=== PATIENT | male | born 1980 | race Caucasian/White ===

== ENCOUNTER 2017-03-11 19:32 | Emergency (ER) | payer MEDICAID, OTHER ==
[2017-03-11] MEDS ORDERED: KETOROLAC TROMETHAMINE INJ/PF 30 MG/1 ML SDV IV ONE (20:21)
--- NOTE | 2017-03-11 20:21 | ER Document Report ---
ED Medical Screen (RME) - General Chief Complaint: Fever, body aches Stated Complaint: FEVER,MUSCLE PAIN Notes: Pt is a 36 yo male c/o fever, headache and bodyache x 4 days. Tmax 102. Headache is unusual for patient, no hx/o headaches. no n/v. + diarrhea for past several days. Pt is mildly ill looking. Tachycardic at 124. TRAVEL OUTSIDE OF THE [place] IN LAST 30 DAYS: No - Related Data Allergies/Adverse Reactions: No Known Allergies Allergy (Verified 03/22/15 15:14) Past Medical History Pulmonary Medical History: Reports: Hx COPD Renal/ Medical History: Denies: Hx Peritoneal Dialysis Past Surgical History: Reports: Hx Appendectomy - Immunizations Immunizations up to date: Yes Hx Diphtheria, Pertussis, Tetanus Vaccination: Yes Physical Exam - Vital signs Vitals: Temp Pulse Resp BP Pulse Ox 98.8 F 123 H 18 135/72 H 98 03/11/17 20:01 03/11/17 20:01 03/11/17 20:01 03/11/17 20:01 03/11/17 20:01 Course - Vital Signs Vital signs: Temp Pulse Resp BP Pulse Ox 98.8 F 123 H 18 135/72 H 98 03/11/17 20:01 03/11/17 20:01 03/11/17 20:01 03/11/17 20:01 03/11/17 20:01
[2017-03-11] MEDS ORDERED: NORMAL SALINE 1000 ML 1,000 ML IV PRN ×2 (20:22→23:16)
[2017-03-11 20:51] LABS: ABSOLUTE BASOPHILS # (AUTO) 0.1 10^3/uL (0.0-0.2); ABSOLUTE EOSINOPHILS # (AUTO) 0.1 10^3/uL (0.0-0.6); ABSOLUTE LYMPHOCYTES (AUTO) 1.7 10^3/uL (0.5-4.7); ABSOLUTE NEUT (AUTO) 9.8 10^3/uL (1.7-8.2); BASOPHILS % (AUTO) 0.8 % (0-2); EOSINOPHILS % (AUTO) 0.9 % (0-6); HEMATOCRIT 44.5 % (37.9-51.0); HEMOGLOBIN 15.3 g/dL (13.5-17.0); HGB HCT DIFFERENCE 1.4; LYMPHOCYTES % (AUTO) 13.5 % (13-45); MEAN CORPUSCULAR HEMOGLOBIN 31.9 pg (27.0-33.4); MEAN CORPUSCULAR HGB CONC 34.3 g/dL (32.0-36.0); MEAN CORPUSCULAR VOLUME 93 fl (80-97); RED BLOOD COUNT 4.79 10^6/uL (4.35-5.55); RED CELL DISTRIBUTION WIDTH 12.9 % (11.5-14.0); SEGMENTED NEUTROPHILS % (AUTO) 76.8 % (42-78); WHITE BLOOD COUNT 12.8 10^3/uL (4.0-10.5)
[2017-03-11 21:04] LABS: ALANINE AMINOTRANSFERASE 80 U/L (21-72); ALBUMIN 4.6 g/dL (3.5-5.0); ALKALINE PHOSPHATASE 79 U/L (38-126); ANION GAP 12 (5-19); ASPARTATE AMINO TRANSFERASE 38 U/L (17-59); BILIRUBIN,DIRECT 0.4 mg/dL (0.0-0.4); BILIRUBIN,TOTAL 0.5 mg/dL (0.2-1.3); BLOOD UREA NITROGEN 16 mg/dL (7-20); CALCIUM 9.5 mg/dL (8.4-10.2); CARBON DIOXIDE 24 mmol/L (22-30); CHLORIDE 98 mmol/L (98-107); CREATININE RESULT 0.89 mg/dL (0.52-1.25); GLUCOSE 169 mg/dL (75-110); POTASSIUM 4.5 mmol/L (3.6-5.0); TOTAL PROTEIN 7.5 g/dL (6.3-8.2)
[2017-03-11 21:32] LABS: APPEARANCE,URINE SLIGHTLY-CLOUDY; BILIRUBIN,URINE NEGATIVE (NEGATIVE); GLUCOSE, URINE NEGATIVE (NEGATIVE); KETONES,URINE NEGATIVE (NEGATIVE); LEUKOCYTE ESTERASE,URINE NEGATIVE (NEGATIVE); NITRITE,URINE NEGATIVE (NEGATIVE); PROTEIN,URINE 100 mg/dL (NEGATIVE); URINE SPECIFIC GRAVITY 1.035; UROBILINOGEN,URINE NEGATIVE mg/dL (<2.0)
--- NOTE | 2017-03-11 22:05 | RADIOLOGY REPORT (SQ) ---
EXAM DESCRIPTION: CHEST PA/LAT COMPLETED DATE/TIME: 03/11/2017 9:55 pm REASON FOR STUDY: fever COMPARISON: None. EXAM PARAMETERS: NUMBER OF VIEWS: two views TECHNIQUE: Digital Frontal and Lateral radiographic views of the chest acquired. RADIATION DOSE: NA LIMITATIONS: none FINDINGS: LUNGS AND PLEURA: No opacities, masses or pneumothorax. No pleural effusion. MEDIASTINUM AND HILAR STRUCTURES: No masses or contour abnormalities. HEART AND VASCULAR STRUCTURES: Heart normal size. No evidence for failure. BONES: No acute findings. HARDWARE: None in the chest. OTHER: No other significant finding. IMPRESSION: NO SIGNIFICANT RADIOGRAPHIC FINDING IN THE CHEST. TECHNICAL DOCUMENTATION: JOB ID: [id number] [employer]- All Rights Reserved
[2017-03-11 23:05] VITALS: BP 128/63
--- NOTE | 2017-03-11 23:23 | ER Document Report ---
HPI - HPI Pain Level: 4 Notes: Patient is a 36-year-old male who presents the ED complaining of fever, body aches, headaches, joint pain 4 days. Patient states that the fever high was 102. Patient has been taking Tylenol and ibuprofen with minimal relief. Patient states that he works outside all day every day and is also had some muscle cramping. Patient states that he did get into triggers the other day which brought up his legs, but he has not noticed any abscess or purulent discharge. Patient states that he also has been pulling ticks off of him, usually 8-9 out of time. Patient states that he may have been bit by a tick as well that was only on there for less than 2 days. Patient states that he still eating and drinking without any difficulties. He still urinating and having normal bowel movements otherwise. He denies any drug allergies. He has a past medical history significant for hypertension. He does admit to smoking but denies any other illicit drug use. Occasional alcohol intake. Denies any head injury, neck pain, changes in vision/speech/mentation/hearing, URI, sore throat , chest pain, palpitations, syncope, cough, shortness of breath, wheeze, dyspnea , abdominal pain, nausea/vomiting/diarrhea, urinary retention, dysuria, hematuria, loss of control of bowel or bladder, numbness/tingling, saddle anesthesia, muscle paralysis/weakness, or rash. - ROS Notes: REVIEW OF SYSTEMS: CONSTITUTIONAL : see hpi EENT: Denies eye, ear, throat, or mouth pain or symptoms. Denies nasal or sinus congestion or discharge. Denies throat, tongue, or mouth swelling or difficulty swallowing. CARDIOVASCULAR: Denies chest pain. Denies palpitations or racing or irregular heart beat. Denies ankle edema. RESPIRATORY: Denies cough, cold, or chest congestion. Denies shortness of breath, difficulty breathing, or wheezing. GASTROINTESTINAL: Denies abdominal pain or distention. Denies nausea, vomiting , or diarrhea. Denies blood in vomitus, stools, or per rectum. Denies black, tarry stools. Denies constipation. GENITOURINARY: Denies difficulty urinating, painful urination, burning, frequency, blood in urine, or discharge. MUSCULOSKELETAL: see hpi. SKIN: Denies rash, lesions or sores. NEUROLOGICAL: Denies confusion or altered mental status. Denies passing out or loss of consciousness. Denies dizziness or lightheadedness. Denies headache. Denies weakness or paralysis or loss of use of either side. Denies problems with gait or speech. ALL OTHER SYSTEMS REVIEWED AND NEGATIVE. Dictation was performed using [employer] voice recognition software - CARDIOVASCULAR Cardiovascular: DENIES: Chest pain - DERM Skin Color: Normal, [place] Past Medical History - Social History Smoking Status: Current Every Day Smoker Chew tobacco use (# tins/day): No Frequency of alcohol use: None Drug Abuse: None Family History: CAD, DM, Hyperlipidemia, Hypertension, Malignancy Pulmonary Medical History: Reports: Hx COPD Renal/ Medical History: Denies: Hx Peritoneal Dialysis Past Surgical History: Reports: Hx Appendectomy - Immunizations Immunizations up to date: Yes Hx Diphtheria, Pertussis, Tetanus Vaccination: Yes Vertical Provider Document - CONSTITUTIONAL Agree With Documented VS: Yes Notes: PHYSICAL EXAMINATION: GENERAL: Well-appearing, well-nourished and in no acute distress. HEAD: Atraumatic, normocephalic. EYES: Pupils equal round and reactive to light, extraocular movements intact, sclera anicteric, conjunctiva are normal. ENT: EAC clear b/l. TM's intact b/l without erythema, fluid, or perforation. Nares patent and without discharge. oropharynx clear without exudates. No tonsilar hypertrophy or erythema. Moist mucous membranes. No sinus tenderness. NECK: Normal range of motion, supple without lymphadenopathy. no rigidity/ meningismus. LUNGS: Breath sounds clear to auscultation bilaterally and equal. No wheezes rales or rhonchi. HEART: Regular rate and rhythm without murmurs, rubs, gallops. ABDOMEN: Soft, nontender, nondistended abdomen. No guarding, no rebound. No masses appreciated. Normal bowel sounds present. No CVA tenderness bilaterally. Musculoskeletal: Ext b/l: FROM to passive/active. Strength 5+/5. No focal deficits. Extremities: No cyanosis, clubbing, or edema b/l. Peripheral pulses 2+. Capillary refill less than 3 seconds. NEUROLOGICAL: MMSE intact. Cranial nerves grossly intact. Normal speech, normal gait. Normal sensory, motor exams PSYCH: Normal mood, normal affect. SKIN: multiple small erythemic, scabbed, lesions to legs b/l without any induration, abscess, discharge, or streaks. No embedded ticks noted throughout entire body including pelvic/axilla/head. - INFECTION CONTROL TRAVEL OUTSIDE OF THE [place] IN LAST 30 DAYS: No - RESPIRATORY O2 Sat by Pulse Oximetry: 97 Course - Re-evaluation Re-evalutation: 03/11/17 23:24 Patient is an afebrile, well-hydrated, 36yo male who presents with suspected [place] spotted fever based on H&P today. Vitals are now stable after toradol and fluids. PE otherwise unremarkable. CBC showed a mlidly elevated wbc count of 12. CMP, urine, and CXR unremarkable. Lyme titre pending. Reviewed case with Dr. Carpenter who is in agreement with treatment/plan/ discharge. We will cover him with Doxy 100mg PO BID x14 days. Conservative measures for symptoms reviewed. Low suspicion for any urgent/emergent condition otherwise at this time that would require inpatient or surgical procedures. Patient is aware that condition can change from initial presentation and he needs to monitor symptoms closely and seek medical attention if any acute changes. Recheck with your PCM this week. Return to the ED with any worsening/concerning symptoms otherwise as reviewed in discharge. Patient is in agreement. - Vital Signs Vital signs: Temp Pulse Resp BP Pulse Ox 98.8 F 82 18 128/63 H 97 03/11/17 20:01 03/11/17 23:04 03/11/17 20:01 03/11/17 23:04 03/11/17 23:04 - Laboratory Result Diagrams: 03/11/17 20:30 03/11/17 20:30 Laboratory results interpreted by me: 03/11/17 03/11/17 03/11/17 20:30 20:30 20:30 WBC 12.8 H Absolute Neutrophils 9.8 H Sodium 134.0 L Glucose 169 H ALT 80 H Urine Protein 100 H Discharge - Discharge Clinical Impression: [place] spotted fever Condition: Stable Disposition: HOME, SELF-CARE Instructions: Acetaminophen, Fever ([facility]), Tick Bites ([facility]) Additional Instructions: Maintain adequate fluid and food intake Take antibiotic for full dose Tylenol/ibuprofen as needed Ice and heat may help Other [id number] meds as needed for symptoms Recheck with your PCM this week Return to the ED with any worsening symptoms and/or development of uncontrollable fever, headache, chest pain, palpitations, syncope, shortness of breath, trouble breathing, abdominal pain, n/v/d, blood in stool/urine, loss of control of bowel/bladder, urinary retention, muscle weakness/paralysis, saddle anesthesia, numbness/tingling, or other worsening symptoms that are concerning to you. Prescriptions: Doxycycline Hyclate 100 mg PO BID #28 capsule Forms: Elevated Blood Pressure, Smoking Cessation Education Referrals: [facility] [Provider Group] - Follow up as needed [facility] [Provider Group] - Follow up as needed [facility] [Provider Group] - Follow up as needed
[2017-03-13 16:30] LABS: LYME DISEASE IGG AND IGM AB <0.91 ISR (0.00-0.90)
== END 2017-03-11 23:56 | disposition home or self-care (01) ==
LOC: ER 19:32
DX: A77.0 Spotted fever due to Rickettsia rickettsii (principal); R51 Headache; M62.838 Other muscle spasm; L98.9 Disorder of the skin and subcutaneous tissue, unspecified; I10 Essential (primary) hypertension; J44.9 Chronic obstructive pulmonary disease, unspecified; F17.200 Nicotine dependence, unspecified, uncomplicated
CPT/HCPCS: 99284; 96361; 96374; 36415; 87070; 87880; 85025; 87077; 80053; 81001; 86618 ×2; 86617 ×2; 71020; J1885; J7030

== ENCOUNTER 2017-08-11 11:02 | Emergency (ER) | payer MEDICAID, OTHER ==
[2017-08-11] MEDS ORDERED: MORPHINE SULFATE 10 MG/ML INJ IV ONE ×2 (11:16→13:21)
[2017-08-11] MEDS ORDERED: ONDANSETRON HCL INJ/PF 4 MG/2 ML SDV IV ONE (11:16)
--- NOTE | 2017-08-11 11:24 | ER Document Report ---
ED Medical Screen (RME) - General Chief Complaint: Abdominal Pain Stated Complaint: STOMACH PAIN Time Seen by Provider: 08/11/17 11:12 Mode of Arrival: Ambulatory Information source: Patient Notes: 37-year-old male presenting to the emergency department today with complaints of left lower quadrant abdominal pain for the last 2 days. Patient states he had "pebble poop" so he took a stool softener which did not relieve his abdominal pain. Patient states he felt "hot" yesterday but never took his temperature. Patient denies any nausea or vomiting. Patient has never had diverticulitis in the past. TRAVEL OUTSIDE OF THE [place] IN LAST 30 DAYS: No - HPI Onset: Other - x2 days Quality of pain: Sharp - Related Data Allergies/Adverse Reactions: No Known Allergies Allergy (Verified 03/22/15 15:14) Past Medical History - General Information source: Patient - Social History Cigarette use (# per day): No Chew tobacco use (# tins/day): No Frequency of alcohol use: Occasional Drug Abuse: None Lives with: Family Family history: Reviewed & Not Pertinent Pulmonary Medical History: Reports: Hx COPD Past Surgical History: Reports: Hx Appendectomy - Immunizations Immunizations up to date: Yes Hx Diphtheria, Pertussis, Tetanus Vaccination: Yes Review of Systems - Review of Systems Gastrointestinal: See HPI, Abdominal pain, Constipation - ? Physical Exam - Vital signs Vitals: Temp Pulse Resp BP Pulse Ox 98.3 F 93 14 133/81 H 98 08/11/17 11:10 08/11/17 11:10 08/11/17 11:10 08/11/17 11:10 08/11/17 11:10 - General General appearance: Appears well, Alert - Respiratory Respiratory status: No respiratory distress Chest status: Nontender Breath sounds: Normal Chest palpation: Normal - Cardiovascular Rhythm: Regular Heart sounds: Normal auscultation Murmur: No - Abdominal Inspection: Obese Tenderness: Tender - generalized left sided Course - Vital Signs Vital signs: Temp Pulse Resp BP Pulse Ox 98.3 F 93 14 133/81 H 98 08/11/17 11:10 08/11/17 11:10 08/11/17 11:10 08/11/17 11:10 08/11/17 11:10 Scribe Documentation - Scribe Written by Joe:: Joe Bocanegra, 08/11/2017 1124 acting as scribe for :: Sarita
[2017-08-11 11:42] LABS: ABSOLUTE BASOPHILS # (AUTO) 0.1 10^3/uL (0.0-0.2); ABSOLUTE EOSINOPHILS # (AUTO) 0.2 10^3/uL (0.0-0.6); ABSOLUTE LYMPHOCYTES (AUTO) 2.3 10^3/uL (0.5-4.7); ABSOLUTE MONOCYTES (AUTO) 0.9 10^3/uL (0.1-1.4); BASOPHILS % (AUTO) 0.8 % (0-2); EOSINOPHILS % (AUTO) 1.6 % (0-6); HEMATOCRIT 41.8 % (37.9-51.0); HEMOGLOBIN 14.1 g/dL (13.5-17.0); MEAN CORPUSCULAR HEMOGLOBIN 31.3 pg (27.0-33.4); MEAN CORPUSCULAR HGB CONC 33.7 g/dL (32.0-36.0); MEAN CORPUSCULAR VOLUME 93 fl (80-97); MONOCYTES % (AUTO) 6.6 % (3-13); PLATELET COUNT 203 10^3/uL (150-450); RED CELL DISTRIBUTION WIDTH 13.4 % (11.5-14.0); TOTAL CELLS COUNTED % (AUTO) 100 %; WHITE BLOOD COUNT 13.5 10^3/uL (4.0-10.5)
[2017-08-11 11:47] LABS: APPEARANCE,URINE SLIGHTLY-CLOUDY; BILIRUBIN,URINE NEGATIVE (NEGATIVE); COLOR,URINE YELLOW; GLUCOSE, URINE NEGATIVE (NEGATIVE); KETONES,URINE NEGATIVE (NEGATIVE); LEUKOCYTE ESTERASE,URINE TRACE (NEGATIVE); NITRITE,URINE NEGATIVE (NEGATIVE); PROTEIN,URINE NEGATIVE (NEGATIVE); URINE SPECIFIC GRAVITY 1.024
[2017-08-11 12:02] LABS: ALANINE AMINOTRANSFERASE 37 U/L (21-72); ALBUMIN 4.3 g/dL (3.5-5.0); ALKALINE PHOSPHATASE 75 U/L (38-126); ANION GAP 11 (5-19); ASPARTATE AMINO TRANSFERASE 16 U/L (17-59); BILIRUBIN,DIRECT 0.3 mg/dL (0.0-0.4); BILIRUBIN,TOTAL 0.4 mg/dL (0.2-1.3); BLOOD UREA NITROGEN 13 mg/dL (7-20); CALCIUM 9.8 mg/dL (8.4-10.2); CARBON DIOXIDE 26 mmol/L (22-30); CHLORIDE 103 mmol/L (98-107); GLUCOSE 162 mg/dL (75-110); LIPASE 55.5 U/L (23-300); POTASSIUM 4.7 mmol/L (3.6-5.0); SODIUM 139.7 mmol/L (137-145)
--- NOTE | 2017-08-11 12:14 | RADIOLOGY REPORT (SQ) ---
EXAM DESCRIPTION: CT ABD/PELVIS WITH IV ONLY COMPLETED DATE/TIME: 08/11/2017 12:07 pm REASON FOR STUDY: LLQ Pain COMPARISON: None. TECHNIQUE: CT scan of the abdomen and pelvis performed using helical scanning technique with dynamic intravenous contrast injection. No oral contrast. Images reviewed with lung, soft tissue, and bone windows. Reconstructed coronal and sagittal MPR images reviewed. Delayed images for evaluation of the urinary system also acquired. All images stored on PACS. All CT scanners at this facility use dose modulation, iterative reconstruction, and/or weight based d osing when appropriate to reduce radiation dose to as low as reasonably achievable (ALARA). [facility]: Dose Right [facility]: CareDose [facility]: Dose Right [facility]: Teradose 4D [facility]: Keep Me Certified CONTRAST TYPE AND DOSE: contrast/concentration: Isovue 370.00 mg/ml; Total Contrast Delivered: 100.0 ml; Total Saline Delivered: 72.1 ml RENAL FUNCTION: None required. The patient is less than 50 years old. RADIATION DOSE: CT Rad equipment meets quality standard of care and radiation dose reduction techniq ues were employed. CTDIvol: NaN - NaN mGy. DLP: 0 mGy-cm.. LIMITATIONS: None. FINDINGS: LOWER CHEST: No significant findings. No nodules or infiltrates. LIVER: Mild diffuse hepatic steatosis. No masses. No dilated ducts. SPLEEN: Normal size. No focal lesions. PANCREAS: No masses. No significant calcifications. No adjacent inflammation or peripancreatic fluid collections. Pancreatic duct not dilated. GALLBLADDER: No identified stones by CT criteria. No inflammatory changes to suggest cholecystitis. ADRENAL GLANDS: No significant masses or asymmetry. RIGHT KIDNEY AND URETER: No solid masses. No significant calcifications. No hydronephrosis or hyd roureter. LEFT KIDNEY AND URETER: No solid masses. No significant calcifications. No hydronephrosis or hydr oureter. AORTA AND VESSELS: No aneurysm. No dissection. Renal arteries, SMA, celiac without stenosis. RETROPERITONEUM: No retroperitoneal adenopathy, hemorrhage or masses. BOWEL AND PERITONEAL CAVITY: Inflammatory change involving the sigmoid colon in the setting of divert icula compatible with acute diverticulitis. No abscess or free air. Small and large bowel loops oth erwise normal. APPENDIX: Surgically absent. PELVIS: No mass. No free fluid. Normal bladder. ABDOMINAL WALL: No masses. No hernias. BONES: No significant or acute findings. OTHER: No other significant finding. IMPRESSION: ACUTE SIGMOID DIVERTICULITIS WITHOUT COMPLICATION IDENTIFIED. MILD HEPATIC STEATOSIS. TECHNICAL DOCUMENTATION: JOB ID: [id number] Quality ID # [id number]: Final reports with documentation of one or more dose reduction techniques (e.g., Au tomated exposure control, adjustment of the mA and/or kV according to patient size, use of iterative reconstruction technique) 2010 [employer]- All Rights Reserved
[2017-08-11] MEDS ORDERED: CIPROFLOXACIN 400 MG/D5W RTU 400 MG/200 ML RTUPB IV ONE (13:24)
--- NOTE | 2017-08-11 13:30 | ER Document Report ---
ED General - General Chief Complaint: Abdominal Pain Stated Complaint: STOMACH PAIN Time Seen by Provider: 08/11/17 11:12 Mode of Arrival: Ambulatory Information source: Patient Notes: Patient presents to emergency department with reports of lower abdominal pain for the past 2-3 days. He reports he has been eating a lot of shelled peanuts lately. denies pain with void, denies trauma. Denies vomiting and fever but reports of nausea. Denies pain like this ever before. Reports pebble like stools took some stool softener thinking it was constipation but did not have relief of symptoms. Reports he has been eating and drinking okay but feels like his abdominal pain gets worse when he eats. TRAVEL OUTSIDE OF THE [place] IN LAST 30 DAYS: No - HPI Onset: Other Onset/Duration: Persistent Quality of pain: Achy Severity: Severe Pain Level: 4 Associated symptoms: Nausea Exacerbated by: Denies Relieved by: Denies Similar symptoms previously: No Recently seen / treated by doctor: No - Related Data Allergies/Adverse Reactions: No Known Allergies Allergy (Verified 03/22/15 15:14) Past Medical History - General Information source: Patient - Social History Smoking Status: Current Every Day Smoker Cigarette use (# per day): No Chew tobacco use (# tins/day): No Frequency of alcohol use: Occasional Drug Abuse: None Occupation: [employer] Lives with: Family Family History: CAD, DM, Hyperlipidemia, Hypertension, Malignancy - mom with colon cancer Patient has suicidal ideation: No Patient has homicidal ideation: No Pulmonary Medical History: Reports: Hx COPD Renal/ Medical History: Denies: Hx Peritoneal Dialysis Past Surgical History: Reports: Hx Appendectomy - Immunizations Immunizations up to date: Yes Hx Diphtheria, Pertussis, Tetanus Vaccination: Yes Review of Systems - Review of Systems Notes: Review HPI for review of systems., All other systems negative Physical Exam - Vital signs Vitals: Temp Pulse Resp BP Pulse Ox 98.3 F 93 14 133/81 H 98 08/11/17 11:10 08/11/17 11:10 08/11/17 11:10 08/11/17 11:10 08/11/17 11:10 - Notes Notes: PHYSICAL EXAMINATION: GENERAL: nontoxic looking, moans with movement HEAD: Atraumatic, normocephalic. EYES: Pupils equal round extraocular movements intact, sclera anicteric, conjunctiva are normal. ENT: nares patent, Moist mucous membranes. NECK: Normal range of motion, supple without lymphadenopathy LUNGS: CTAB and equal. No wheezes rales or rhonchi. HEART: Regular rate and rhythm without murmurs ABDOMEN: Soft, left lower quad ttp, radiates to side BACK: Nontender to touch EXTREMITIES: Normal range of motion, no pitting edema. No cyanosis. NEUROLOGICAL: Cranial nerves grossly intact. Normal sensory/motor exams. PSYCH: Normal mood, normal affect. SKIN: Warm, Dry, normal turgor, no rashes or lesions noted Course - Re-evaluation Re-evalutation: 08/11/17 13:[address] results diverticulitis. Slight increase in WBC 13.5 otherwise unremarkable labs. Patient instructed on treatment of antibiotics pain medication.. Reports he feels better after the morphine but feels like the pain is coming back. 08/11/17 ambulated out of ED without problems. reports he feels better. - Vital Signs Vital signs: Temp Pulse Resp BP Pulse Ox 97.3 F 81 16 127/82 H 100 08/11/17 14:51 08/11/17 14:51 08/11/17 14:51 08/11/17 14:51 08/11/17 14:51 - Laboratory Result Diagrams: 08/11/17 11:20 08/11/17 11:20 Laboratory results interpreted by me: 08/11/17 08/11/17 08/11/17 11:20 11:20 11:20 WBC 13.5 H Absolute Neutrophils 10.0 H Glucose 162 H AST 16 L Urine Urobilinogen 2.0 H Ur Leukocyte Esterase TRACE H Urine Ascorbic Acid 40 H - Diagnostic Test Radiology reviewed: Image reviewed, Reports reviewed - EXAM DESCRIPTION: CT ABD/ PELVIS WITH IV ONLY COMPLETED DATE/TIME: 08/11/2017 12:07 pm REASON FOR STUDY : LLQ Pain COMPARISON: None. TECHNIQUE: CT scan of the abdomen and pelvis performed using helical scanning technique with dynamic intravenous contrast injection. No oral contrast. Images reviewed with lung, soft tissue, and bone windows. Reconstructed coronal and sagittal MPR images reviewed. Delayed images for evaluation of the urinary system also acquired. All images stored on PACS. All CT scanners at this facility use dose modulation, iterative reconstruction , and/or weight based dosing when appropriate to reduce radiation dose to as low as reasonably achievable (ALARA). [facility]: Dose Right [facility]: CareDose [facility]: Dose Right [facility]: Teradose 4D [facility]: [employer] CONTRAST TYPE AND DOSE: contrast/concentration: Isovue 370.00 mg/ml; Total Contrast Delivered: 100.0 ml ; Total Saline Delivered: 72.1 ml RENAL FUNCTION: None required. The patient is less than 50 years old. RADIATION DOSE: CT Rad equipment meets quality standard of care and radiation dose reduction techniques were employed. CTDIvol : NaN - NaN mGy. DLP: 0 mGy-cm.. LIMITATIONS: None. FINDINGS: LOWER CHEST: No significant findings. No nodules or infiltrates. LIVER: Mild diffuse hepatic steatosis. No masses. No dilated ducts. SPLEEN: Normal size. No focal lesions. PANCREAS: No masses. No significant calcifications. No adjacent inflammation or peripancreatic fluid collections. Pancreatic duct not dilated. GALLBLADDER: No identified stones by CT criteria. No inflammatory changes to suggest cholecystitis. ADRENAL GLANDS: No significant masses or asymmetry. RIGHT KIDNEY AND URETER: No solid masses. No significant calcifications. No hydronephrosis or hydroureter. LEFT KIDNEY AND URETER: No solid masses. No significant calcifications. No hydronephrosis or hydroureter. AORTA AND VESSELS: No aneurysm. No dissection. Renal arteries, SMA, celiac without stenosis. RETROPERITONEUM: No retroperitoneal adenopathy, hemorrhage or masses. BOWEL AND PERITONEAL CAVITY: Inflammatory change involving the sigmoid colon in the setting of diverticula compatible with acute diverticulitis. No abscess or free air. Small and large bowel loops otherwise normal. APPENDIX: Surgically absent. PELVIS: No mass. No free fluid. Normal bladder. ABDOMINAL WALL: No masses. No hernias. BONES: No significant or acute findings. OTHER: No other significant finding. IMPRESSION: ACUTE SIGMOID DIVERTICULITIS WITHOUT COMPLICATION IDENTIFIED. MILD HEPATIC STEATOSIS. Discharge - Discharge Clinical Impression: Abdominal pain Qualifiers: Abdominal location: left lower quadrant Qualified Code(s): R10.32 - Left lower quadrant pain Diverticulosis Qualifiers: Diverticulosis site: diverticulosis of large intestine Diverticulosis bleeding : diverticulosis without bleeding Qualified Code(s): K57.30 - Diverticulosis of large intestine without perforation or abscess without bleeding Condition: Stable Disposition: HOME, SELF-CARE Instructions: Antinausea Medication ([facility]), Ciprofloxacin ([facility]), Diverticulitis ([facility]), Family Physicians / Practices, Gastroenterology, Metronidazole ([facility]), Oral Narcotic Medication ([facility]) Additional Instructions: *You have been evaluated for abdominal pain, Sigmoid diverticulitis *Take medication as prescribed *Follow up with a primary care provider within 5 days *Follow up with gastroenterology for full evaluation within one week *Return to ED for worsening condition, changes, needs, increased pain *Return to ED if not better in 24 hours Prescriptions: Ciprofloxacin HCl [Cipro 500 mg Tablet] 500 mg PO BID #20 tablet Metronidazole [Flagyl 500 mg Tablet] 500 mg PO BID #14 tablet Oxycodone HCl/Acetaminophen [Percocet 5-325 mg Tablet] 1 - 2 tab PO ASDIR PRN # 20 tablet PRN Reason: Forms: Elevated Blood Pressure, Smoking Cessation Education
[2017-08-11 14:56] VITALS: BP 127/82
== END 2017-08-11 14:55 | disposition home or self-care (01) ==
LOC: ER 11:02
DX: K57.30 Diverticulosis of large intestine without perforation or abscess without bleeding (principal); R10.32 Left lower quadrant pain; F17.200 Nicotine dependence, unspecified, uncomplicated
CPT/HCPCS: 96376; 99284; 96375; 96365; 36415; 83690; 85025; 80053; 81001; 74177; J2270; J2405; J0744

== ENCOUNTER 2017-09-06 10:37 | Day surgery (SDC) | payer MEDICAID, OTHER ==
[~2017-09-06 10:37] MED LIST: LACTATED RINGERS 1000 ML IV PRN; LIDOCAINE 0.5% INJ-PF (5 MG/ML) 50 ML SDV SUBCUT PRN
[2017-09-06] MEDS ORDERED: PROPOFOL INJ 200 MG/20 ML VIAL IV ONE (12:49)
--- NOTE | 2017-09-06 13:45 | Operative Report ---
Operative Report DATE OF SURGERY: 09/06/17 Operative Report: The risks, benefits and alternatives of the procedure including the risks of bleeding, perforation requiring surgery are explained to the patient detail and informed consent is obtained. Patient is taken back to the cystoscopy room and placed in a left, lateral decubital position. Timeout was called. Propofol medications administered. A rectal examination is done which did not reveal any masses, tears or fissures. An Olympus videoscope was inserted into the patient's rectum. The scope was then carefully advanced all the way to the cecum. The cecum was identified by the usual anatomical landmarks including the ileocecal valve as well as the appendiceal office. Photodocumentation is obtained. Prep is good. The scope was then sequentially pulled back via the various segments of the colon including the ascending colon, hepatic flexure, transverse colon, splenic flexure, descending colon and finding to the rectosigmoid portions of the colon. Retroflexion maneuvers performed. The risks benefits and alternatives of the procedure explained to the patient in detail and informed consent is obtained.A GIF Olympus video scope was inserted into the patient's mouth and hypopharynx, the esophagus is identified intubated and insufflated, the scope was then advanced through the esophagus stomach and duodenum, retroflexion maneuver is done, the esophagus stomach and first and second portions of the duodenum examined PREOPERATIVE DIAGNOSIS: History of diverticulitis. Left lower quadrant pain. dysphagia POSTOPERATIVE DIAGNOSIS: Diverticulosis with residual evidence of diverticulitis status post biopsy. Colon polyp suture removal in the rectosigmoid region. Internal hemorrhoids. Esophagitis versus Mcqueen's status post biopsy for confirmation. Gastric erosion. Duodenitis OPERATION: Colonoscopy with snare polypectomy. Colonoscopy with biopsy. EGD with biopsy SURGEON: SHANNAN HANKINS ANESTHESIA: LMAC TISSUE REMOVED OR ALTERED: As noted above. COMPLICATIONS: None. ESTIMATED BLOOD LOSS: None. INTRAOPERATIVE FINDINGS: As noted above. PROCEDURE: Patient tolerated the procedure well. No immediate postprocedure complications are noted. Patient discharged in good condition. Discharge date 09/06/2017. Discharge diet: Regular. Discharge activity: Regular. 2-3 week follow-up to discuss findings. 3 year surveillance colonoscopy. We will wait on pathology. Patient may need repeat EGD with ablative therapy if biopsies are positive for Mcqueen's esophagus. Patient is instructed call the office or proceed to the emergency room should there be any further problems or questions.
[2017-09-06] MEDS ORDERED: ONDANSETRON HCL INJ/PF 4 MG/2 ML SDV IV PRN (13:50)
[2017-09-06] MEDS ORDERED: ACETAMINOPHEN 100 ML IV ONE (13:52)
[2017-09-06] MEDS ORDERED: ACETAMINOPHEN 325 MG TABLET PO PRN (13:58)
[2017-09-06] MEDS ORDERED: DEXTROSE 5%-1/2 NORMAL SALINE 1,000 ML IV PRN (13:58)
[2017-09-06] MEDS ORDERED: SIMETHICONE 80 MG TAB.CHEW PO PRN (13:59)
[2017-09-06] MEDS ORDERED: PROMETHAZINE HCL INJ 25 MG/1 ML VIAL INJ PRN (14:00)
[2017-09-06 15:23] VITALS: BP 124/90
== END 2017-09-06 15:15 | disposition home or self-care (01) ==
LOC: OROUT 10:37
PROVIDERS: ATTEND Internal Medicine Gastroenterology
PROC: 0DBE8ZX Excision of Large Intestine, Via Natural or Artificial Opening Endoscopic, Diagnostic (ICD-10-PCS; principal; 2017-09-06 13:00)
PROC: 0DBP8ZX Excision of Rectum, Via Natural or Artificial Opening Endoscopic, Diagnostic (ICD-10-PCS; 2017-09-06 13:00)
PROC: 0DB68ZX Excision of Stomach, Via Natural or Artificial Opening Endoscopic, Diagnostic (ICD-10-PCS; 2017-09-06 13:00)
DX: K57.32 Diverticulitis of large intestine without perforation or abscess without bleeding (principal); K62.1 Rectal polyp; K64.8 Other hemorrhoids; K20.9 Esophagitis, unspecified; K29.80 Duodenitis without bleeding; K25.9 Gastric ulcer, unspecified as acute or chronic, without hemorrhage or perforation; R10.32 Left lower quadrant pain; R13.10 Dysphagia, unspecified; Z80.0 Family history of malignant neoplasm of digestive organs
CPT/HCPCS: 43239; 45380; 45385; 82962; 88305 ×2; J2704; J0131; 813

== ENCOUNTER 2017-09-28 08:42 | Day surgery (SDC) | payer OTHER ==
[~2017-09-28 08:42] MED LIST changes: +DIPHENHYDRAMINE HCL 50 MG/ML VIAL ONE; +EPINEPHRINE INJ 1 MG/10 ML DISP.SYRIN ONE; +FLUMAZENIL INJ 0.5 MG/5 ML VIAL ONE; +GLUCAGON,HUMAN RECOMB 1 MG INJ ONE; -LACTATED RINGERS 1000 ML IV PRN; -LIDOCAINE 0.5% INJ-PF (5 MG/ML) 50 ML SDV SUBCUT PRN; +NALOXONE HCL INJ/PF 0.4 MG/1 ML SDV ONE; +ONDANSETRON HCL INJ/PF 4 MG/2 ML SDV ONE
[2017-09-28] MEDS: MIDAZOLAM 2 MG/2 ML INJ ONE ×4 (09:00→09:10)
[2017-09-28] MEDS: FENTANYL CITRATE INJ/PF 100 MCG/2 ML AMPUL ONE ×3 (09:02→09:06)
--- NOTE | 2017-09-28 09:20 | Operative Report ---
Operative Report DATE OF SURGERY: 09/28/17 Operative Report: The risks benefits and alternatives of the procedure explained to the patient in detail and informed consent is obtained-.A GIF Olympus video scope was inserted into the patient's mouth and hypopharynx, the esophagus is identified intubated and insufflated, the scope was then advanced through the esophagus stomach and duodenum, retroflexion maneuver is done ,the esophagus stomach and first and second portions of the duodenum examined PREOPERATIVE DIAGNOSIS: Mcqueen's esophagus POSTOPERATIVE DIAGNOSIS: Mcqueen's esophagus status post ablation. Gastritis has improved OPERATION: EGD with ablation SURGEON: SHANNAN HANKINS ANESTHESIA: Moderate Sedation - 8 mg of Versed, 150 mcg of fentanyl. Conscious sedation monitoring time 30 minutes. TISSUE REMOVED OR ALTERED: None. COMPLICATIONS: None. ESTIMATED BLOOD LOSS: None. INTRAOPERATIVE FINDINGS: As noted above. PROCEDURE: Patient tolerated procedure well. No immediate postprocedure complications are noted. Patient discharged in good condition. Discharge date 09/28/2017. Discharge diet: Regular. Discharge activity: Regular. 2-3 week follow-up to discuss findings. Patient is instructed to call the office or proceed to the emergency room should there be any further problems or questions. We will wait on pathology.
[2017-09-28 10:19] VITALS: BP 125/77
== END 2017-09-28 10:17 | disposition home or self-care (01) ==
LOC: END 08:42
PROVIDERS: ATTEND Internal Medicine Gastroenterology
PROC: 0D558ZZ Destruction of Esophagus, Via Natural or Artificial Opening Endoscopic (ICD-10-PCS; principal; 2017-09-28 09:00)
DX: K22.719 Barrett's esophagus with dysplasia, unspecified (principal); K29.50 Unspecified chronic gastritis without bleeding; K21.9 Gastro-esophageal reflux disease without esophagitis; Z86.010 Personal history of colon polyps; K64.8 Other hemorrhoids; F17.210 Nicotine dependence, cigarettes, uncomplicated
CPT/HCPCS: 43270; 82962; J2250; J3010; J0171; J1200; J1610; J2310; J2405; J3490

== ENCOUNTER 2018-09-21 11:14 | Emergency (ER) | payer MEDICAID, OTHER ==
[2018-09-21] MEDS ORDERED: KETOROLAC TROMETHAMINE 60 MG/2 ML SDV IM ONE (11:27)
--- NOTE | 2018-09-21 11:28 | ER Document Report ---
ED Medical Screen (RME) - General Chief Complaint: Lower Abdominal Pain Stated Complaint: ABDOMINAL PAIN Time Seen by Provider: 09/21/18 11:26 Primary Care Provider: SHANE MAGDALENO DO [Primary Care Provider] - Follow up as needed Mode of Arrival: Ambulatory Information source: Patient TRAVEL OUTSIDE OF THE [place] IN LAST 30 DAYS: No - HPI Patient complains to provider of: abd pain Onset: Yesterday - pt with onset of lower abd pain starting yesterday. Denies N/V/D - Related Data Allergies/Adverse Reactions: No Known Allergies Allergy (Verified 09/21/18 11:15) Past Medical History - Social History Family history: Reviewed & Not Pertinent - Past Medical History Cardiac Medical History: Denies: Hx Coronary Artery Disease, Hx Heart Attack, Hx Hypertension Pulmonary Medical History: Denies: Hx Asthma, Hx Bronchitis, Hx COPD, Hx Pneumonia Neurological Medical History: Denies: Hx Cerebrovascular Accident, Hx Seizures Renal/ Medical History: Denies: Hx Peritoneal Dialysis Musculoskeltal Medical History: Denies Hx Arthritis Past Surgical History: Reports: Hx Appendectomy - Immunizations Immunizations up to date: Yes Hx Diphtheria, Pertussis, Tetanus Vaccination: Yes History of Influenza Vaccine for 04/2017 - 09/2017 Season: No Physical Exam - Vital signs Vitals: Temp Pulse Resp BP Pulse Ox 99.4 F 102 H 20 150/92 H 96 09/21/18 11:16 09/21/18 11:16 09/21/18 11:16 09/21/18 11:16 09/21/18 11:16 Course - Vital Signs Vital signs: Temp Pulse Resp BP Pulse Ox 99.4 F 102 H 20 150/92 H 96 09/21/18 11:16 09/21/18 11:16 09/21/18 11:16 09/21/18 11:16 09/21/18 11:16 Doctor's Discharge - Discharge Referrals: SHANE MAGDALENO DO [Primary Care Provider] - Follow up as needed
[2018-09-21 11:55] LABS: ABSOLUTE BASOPHILS # (AUTO) 0.1 10^3/uL (0.0-0.2); ABSOLUTE EOSINOPHILS # (AUTO) 0.2 10^3/uL (0.0-0.6); ABSOLUTE LYMPHOCYTES (AUTO) 2.2 10^3/uL (0.5-4.7); ABSOLUTE MONOCYTES (AUTO) 1.1 10^3/uL (0.1-1.4); ABSOLUTE NEUT (AUTO) 15.1 10^3/uL (1.7-8.2); BASOPHILS % (AUTO) 0.6 % (0-2); EOSINOPHILS % (AUTO) 0.9 % (0-6); HEMATOCRIT 42.1 % (37.9-51.0); HEMOGLOBIN 14.4 g/dL (13.5-17.0); LYMPHOCYTES % (AUTO) 11.9 % (13-45); MEAN CORPUSCULAR HEMOGLOBIN 32.5 pg (27.0-33.4); MEAN CORPUSCULAR HGB CONC 34.3 g/dL (32.0-36.0); MEAN CORPUSCULAR VOLUME 95 fl (80-97); MONOCYTES % (AUTO) 5.7 % (3-13); PLATELET COUNT 238 10^3/uL (150-450); RED BLOOD COUNT 4.43 10^6/uL (4.35-5.55); RED CELL DISTRIBUTION WIDTH 14.2 % (11.5-14.0); SEGMENTED NEUTROPHILS % (AUTO) 80.9 % (42-78); TOTAL CELLS COUNTED % (AUTO) 100 %; WHITE BLOOD COUNT 18.7 10^3/uL (4.0-10.5)
[2018-09-21 12:12] LABS: ALANINE AMINOTRANSFERASE 40 U/L (21-72); ALBUMIN 4.4 g/dL (3.5-5.0); ALKALINE PHOSPHATASE 81 U/L (38-126); ANION GAP 8 (5-19); ASPARTATE AMINO TRANSFERASE 23 U/L (17-59); BILIRUBIN,DIRECT 0.2 mg/dL (0.0-0.4); BILIRUBIN,TOTAL 0.6 mg/dL (0.2-1.3); BLOOD UREA NITROGEN 15 mg/dL (7-20); CALCIUM 9.6 mg/dL (8.4-10.2); CARBON DIOXIDE 29 mmol/L (22-30); CHLORIDE 102 mmol/L (98-107); GLUCOSE 115 mg/dL (75-110); POTASSIUM 4.7 mmol/L (3.6-5.0); TOTAL PROTEIN 7.5 g/dL (6.3-8.2)
--- NOTE | 2018-09-21 12:14 | RADIOLOGY REPORT (SQ) ---
EXAM DESCRIPTION: ACUTE ABDOMEN SERIES COMPLETED DATE/TIME: 09/21/2018 11:49 am REASON FOR STUDY: abd pain COMPARISON: None. NUMBER OF VIEWS: Three views. TECHNIQUE: Frontal chest, supine abdomen and upright/decubitus abdomen radiographic images acquired. LIMITATIONS: None. FINDINGS: CHEST: Lungs clear of infiltrates. FREE AIR: None. No abnormal gas collections. BOWEL GAS PATTERN: Nonobstructive pattern. No dilated loops or air fluid levels. CALCIFICATIONS: No suspicious calcifications. HARDWARE: None in the abdomen. SOFT TISSUES: No gross mass or suggestion of organomegaly. BONES: No acute fracture. No worrisome bone lesions. OTHER: No other significant finding. IMPRESSION: NO RADIOGRAPHIC EVIDENCE FOR ACUTE ABDOMINAL DISEASE. TECHNICAL DOCUMENTATION: JOB ID: [id number] [employer]- All Rights Reserved Reading location - IP/workstation name: [email or web address]
[2018-09-21 12:23] LABS: APPEARANCE,URINE SLIGHTLY-CLOUDY; BILIRUBIN,URINE NEGATIVE (NEGATIVE); COLOR,URINE YELLOW; GLUCOSE, URINE NEGATIVE (NEGATIVE); KETONES,URINE NEGATIVE (NEGATIVE); LEUKOCYTE ESTERASE,URINE NEGATIVE (NEGATIVE); NITRITE,URINE NEGATIVE (NEGATIVE); PROTEIN,URINE 30 mg/dL (NEGATIVE); URINE SPECIFIC GRAVITY 1.028
--- NOTE | 2018-09-21 13:31 | ER Document Report ---
ED General - General Chief Complaint: Lower Abdominal Pain Stated Complaint: ABDOMINAL PAIN Time Seen by Provider: 09/21/18 11:26 Primary Care Provider: SHANE MAGDALENO DO [Primary Care Provider] - Follow up as needed Mode of Arrival: Ambulatory Notes: 38-year-old male with recent diagnosis of diverticulitis, hypertension, diabetes presents to the emergency department for acute left lower quadrant abdominal pain that started yesterday. Pain is sharp and stabbing in the left lower q uadrant that radiates across his lower abdomen. No palliating factors no provoking factors. Patient noticed that he had a scant mucus in BM and noticed some blood on his toilet paper when he wiped. He is complaining of some lightheadedness, denies fevers or chills, denies nausea or vomiting, denies shortness of breath or chest pain, denies bloating. Denies urinary symptoms. No testicular pain or abnormal testicle lie. TRAVEL OUTSIDE OF THE [place] IN LAST 30 DAYS: No - Related Data Allergies/Adverse Reactions: No Known Allergies Allergy (Verified 09/21/18 11:15) Past Medical History - General Information source: Patient - Social History Smoking Status: Current Every Day Smoker Chew tobacco use (# tins/day): No Frequency of alcohol use: Occasional Drug Abuse: None Family History: CAD, DM, Hyperlipidemia, Hypertension, Malignancy - mom with colon cancer Patient has suicidal ideation: No Patient has homicidal ideation: No - Past Medical History Cardiac Medical History: Denies: Hx Coronary Artery Disease, Hx Heart Attack, Hx Hypertension Pulmonary Medical History: Denies: Hx Asthma, Hx Bronchitis, Hx COPD, Hx Pneumonia Neurological Medical History: Denies: Hx Cerebrovascular Accident, Hx Seizures Renal/ Medical History: Denies: Hx Peritoneal Dialysis Musculoskeletal Medical History: Denies Hx Arthritis Past Surgical History: Reports: Hx Appendectomy - Immunizations Immunizations up to date: Yes Hx Diphtheria, Pertussis, Tetanus Vaccination: Yes Review of Systems - Review of Systems Constitutional: See HPI EENT: No symptoms reported Cardiovascular: See HPI Respiratory: See HPI Gastrointestinal: See HPI Genitourinary: See HPI Male Genitourinary: See HPI Musculoskeletal: No symptoms reported Skin: No symptoms reported Hematologic/Lymphatic: No symptoms reported Neurological/Psychological: No symptoms reported Physical Exam - Vital signs Vitals: Temp Pulse Resp BP Pulse Ox 99.4 F 102 H 20 150/92 H 96 09/21/18 11:16 09/21/18 11:16 09/21/18 11:16 09/21/18 11:16 09/21/18 11:16 - Notes Notes: PHYSICAL EXAMINATION: Reviewed vital signs and charting by RN GENERAL: Alert, interacts well. Mild distress. HEAD: Normocephalic, atraumatic. EYES: Pupils equal, round. Extraocular movements intact. ENT: Oral mucosa moist, tongue midline. NECK: Full range of motion. Supple. Trachea midline. LUNGS: Clear to auscultation bilaterally, no wheezes, rales, or rhonchi. No r espiratory distress. HEART: Regular rate and rhythm. No murmur ABDOMEN: soft, acute tenderness to palpation left lower quadrant that radiates to the right lower quadrant. No rigidity. Non-distended. Bowel sounds present in all 4 quadrants. no McBurney's point tenderness, no Piper sign. EXTREMITIES: Moves all 4 extremities spontaneously. No edema, No cyanosis. PSYCH: Normal affect, normal mood. SKIN: Warm, dry, normal turgor. No rashes or lesions noted. Course - Re-evaluation Re-evalutation: 09/21/18 13:30 Overall well-appearing male in mild distress with probable diverticulitis flareup. Patient seen here on August 11, [address] abdomen performed which showed acute sigmoid diverticulitis. He was placed on Cipro/Flagyl and discharged. Patient is afebrile but does have a leukocytosis of 18,700. I plan to put him on Augmentin/Flagyl. 09/21/18 13:[address] Richard Lincoln. Patient is afebrile, does not have evidence of peritonitis. Most likely represents an uncomplicated diverticulitis. Plan is to put him on Augmentin/Flagyl. He will receive first dose here. 10-day course. Strict return precautions given. Patient is stable to discharge home. I will also give him a short course of 09/21/18 14:08 And I re-address patient with Dr. Lincoln. I told him I did have some minor concerns based on potential local peritonitis. Patient states this is typical of his last flareup. Leukocytosis is slightly higher this time than last time. I explained to the patient that we want to do a CT abdomen/pelvis with IV contrast to ensure that there is no bowel perforation. When I explained to him risk versus benefit of the radiation he kind of blocked because his mother at a young age of colon cancer. I explained to him the remote risks down the road of increased risk of cancer. He states because this is typical of his last flareup he would like to do a period of very close watchful waiting and start antibiotics at home. I told him if his symptoms do not improve in 24-36 hours after being on antibiotics to return to the emergency department. I also told him to have a very low threshold to return to the emergency department if his symptoms get worse when he starts going in the wrong direction. Patient agreed with this plan and wanted to go that route. - Vital Signs Vital signs: Temp Pulse Resp BP Pulse Ox 97.9 F 94 18 138/76 H 100 09/21/18 13:55 09/21/18 13:55 09/21/18 13:55 09/21/18 13:55 09/21/18 13:55 - Laboratory Result Diagrams: 09/21/18 11:37 09/21/18 11:37 Laboratory results interpreted by me: 09/21/18 09/21/18 09/21/18 11:37 11:37 12:00 WBC 18.7 H RDW 14.2 H Seg Neutrophils % 80.9 H Lymphocytes % 11.9 L Absolute Neutrophils 15.1 H Glucose 115 H Urine Protein 30 H Urine Urobilinogen 2.0 H Discharge - Discharge Clinical Impression: Diverticulitis Condition: Good Disposition: HOME, SELF-CARE Instructions: Diverticulitis ([facility]) Additional Instructions: You were seen today for focal pain in your left lower quadrant. Your labs, exam, and imaging suggest a diagnosis of diverticulitis. This is an inflamm ation of a part of your colon. You are being started on antibiotics to treat this infection and inflammation. Please take all of them as directed and complete them even if your symptoms resolve. Please follow-up with your primary care physician within the next 48 hours. Return to the emergency department immediately if you develop worsening pain, persistent vomiting, began having bloody stools, develop a fever of greater than 101F, or have any other symptoms that are concerning to you. Prescriptions: Amox Tr/Potassium Clavulanate [Augmentin 875-125 Tablet] 1 tab PO BID 10 Days tablet Metronidazole [Flagyl 500 mg Tablet] 500 mg PO TID #30 tablet Forms: Return to Work Referrals: SHANE MAGDALENO DO [Primary Care Provider] - Follow up as needed
[2018-09-21] MEDS ORDERED: AMOXICILLIN TR/POT CLAVULANATE 500-125 MG TAB PO ONE (13:45)
[2018-09-21] MEDS ORDERED: METRONIDAZOLE 500 MG TABLET PO ONE (13:46)
[2018-09-21] MEDS ORDERED: HYDROCODONE/ACETAMINOPHEN 5-325 MG (6 TAB/ER DISP) PO PRN ×2 (13:52→14:08)
[2018-09-21 13:56] VITALS: BP 138/76
[2018-09-21] MEDS ORDERED: OXYCODONE-ACETAMINOPHEN 5-325 MG TABLET PO ONE (14:00)
== END 2018-09-21 14:35 | disposition home or self-care (01) ==
LOC: ER 11:14
DX: K57.92 Diverticulitis of intestine, part unspecified, without perforation or abscess without bleeding (principal); R10.32 Left lower quadrant pain; E11.9 Type 2 diabetes mellitus without complications; I10 Essential (primary) hypertension; R42 Dizziness and giddiness; F17.200 Nicotine dependence, unspecified, uncomplicated; Z80.0 Family history of malignant neoplasm of digestive organs
CPT/HCPCS: 99284; 96372; 36415; 83690; 85025; 80053; 81001; 74022; J1885

== ENCOUNTER 2018-09-23 13:04 | Emergency (ER) | payer OTHER ==
[2018-09-23] MEDS ORDERED: RINGERS SOLUTION,LACTATED 1,000 ML IV ONE (14:06)
[2018-09-23] MEDS ORDERED: PANTOPRAZOLE SODIUM 40 MG VIAL IV ONE (14:07)
[2018-09-23] MEDS ORDERED: ONDANSETRON HCL INJ/PF 4 MG/2 ML SDV IV ONE (14:07)
[2018-09-23] MEDS ORDERED: MORPHINE SULFATE 10 MG/ML INJ IV ONE (14:07)
--- NOTE | 2018-09-23 14:09 | ER Document Report ---
ED Medical Screen (RME) - General Chief Complaint: Abdominal Pain Stated Complaint: ABDOMINAL PAIN Time Seen by Provider: 09/23/18 14:01 Primary Care Provider: SHANE MAGDALENO DO [Primary Care Provider] - Follow up as needed Notes: Patient is a 38-year-old male with history of diverticulitis that presents to the emergency department for chief complaint of left lower quadrant abdominal pain. Patient reports that he was here 2 days ago for similar symptoms, and treated as outpatient with Augmentin and Flagyl, but his pain is not improved, it actually got worse, he now describes some left upper quadrant pain as well, noticed darker stool which is concerned about as well. No prior history of PUD.. ROS: Other than noted above, the 12 point review of systems was reviewed with the patient and were negative, all pertinent findings are included in the HPI. PHYSICAL EXAMINATION: Vital signs reviewed. GENERAL: Appears uncomfortable, but in no acute or immediate distress HEAD: Atraumatic, normocephalic. EYES: Pupils equal round extraocular movements intact, conjunctiva are normal. ENT: Nares patent NECK: Normal range of motion CV: Heart regular rate and rhythm LUNGS: No respiratory distress Abdomen: Mild left upper quadrant tenderness to palpation, and significant left lower quadrant tenderness with palpation Musculoskeletal: Normal range of motion NEUROLOGICAL: Normal speech PSYCH: Normal mood, normal affect. MDM: Patient seen and examined for rapid initial assessment. Vital signs reviewed. A comprehensive ED assessment and evaluation of the patient, analysis of test results and completion of the medical decision making process will be conducted by additional ED providers. *Note is created using voice recognition software and may contain spelling, syntax or grammatical errors. TRAVEL OUTSIDE OF THE [place] IN LAST 30 DAYS: No - Related Data Allergies/Adverse Reactions: No Known Allergies Allergy (Verified 09/23/18 13:05) Past Medical History - Social History Family history: Reviewed & Not Pertinent - Past Medical History Cardiac Medical History: Denies: Hx Coronary Artery Disease, Hx Heart Attack, Hx Hypertension Pulmonary Medical History: Denies: Hx Asthma, Hx Bronchitis, Hx COPD, Hx Pneumonia Neurological Medical History: Denies: Hx Cerebrovascular Accident, Hx Seizures Renal/ Medical History: Denies: Hx Peritoneal Dialysis Musculoskeltal Medical History: Denies Hx Arthritis Past Surgical History: Reports: Hx Appendectomy - Immunizations Immunizations up to date: Yes Hx Diphtheria, Pertussis, Tetanus Vaccination: Yes History of Influenza Vaccine for 04/2017 - 09/2017 Season: No Physical Exam - Vital signs Vitals: Temp Pulse Resp BP Pulse Ox 97.8 F 100 18 135/74 H 97 09/23/18 13:11 09/23/18 13:11 09/23/18 13:11 09/23/18 13:11 09/23/18 13:11 Course - Vital Signs Vital signs: Temp Pulse Resp BP Pulse Ox 97.8 F 100 18 135/74 H 97 09/23/18 13:11 09/23/18 13:11 09/23/18 13:11 09/23/18 13:11 09/23/18 13:11 Doctor's Discharge - Discharge Referrals: SHANE MAGDALENO DO [Primary Care Provider] - Follow up as needed
[2018-09-23 14:55] LABS: ABSOLUTE BASOPHILS # (AUTO) 0.1 10^3/uL (0.0-0.2); ABSOLUTE EOSINOPHILS # (AUTO) 0.2 10^3/uL (0.0-0.6); ABSOLUTE LYMPHOCYTES (AUTO) 1.8 10^3/uL (0.5-4.7); ABSOLUTE MONOCYTES (AUTO) 0.7 10^3/uL (0.1-1.4); ABSOLUTE NEUT (AUTO) 9.2 10^3/uL (1.7-8.2); BASOPHILS % (AUTO) 0.7 % (0-2); EOSINOPHILS % (AUTO) 1.8 % (0-6); HEMATOCRIT 41.1 % (37.9-51.0); HEMOGLOBIN 14.1 g/dL (13.5-17.0); LYMPHOCYTES % (AUTO) 14.8 % (13-45); MEAN CORPUSCULAR HEMOGLOBIN 32.4 pg (27.0-33.4); MEAN CORPUSCULAR HGB CONC 34.3 g/dL (32.0-36.0); MEAN CORPUSCULAR VOLUME 94 fl (80-97); PLATELET COUNT 241 10^3/uL (150-450); RED BLOOD COUNT 4.36 10^6/uL (4.35-5.55); RED CELL DISTRIBUTION WIDTH 14.2 % (11.5-14.0); SEGMENTED NEUTROPHILS % (AUTO) 76.7 % (42-78); TOTAL CELLS COUNTED % (AUTO) 100 %; WHITE BLOOD COUNT 12.1 10^3/uL (4.0-10.5)
[2018-09-23 15:02] LABS: APPEARANCE,URINE SLIGHTLY-CLOUDY; BILIRUBIN,URINE NEGATIVE (NEGATIVE); GLUCOSE, URINE NEGATIVE (NEGATIVE); KETONES,URINE NEGATIVE (NEGATIVE); LEUKOCYTE ESTERASE,URINE TRACE (NEGATIVE); NITRITE,URINE NEGATIVE (NEGATIVE); PROTEIN,URINE NEGATIVE (NEGATIVE); URINE SPECIFIC GRAVITY 1.024
[2018-09-23 15:03] LABS: COLOR,URINE YELLOW
--- NOTE | 2018-09-23 15:10 | RADIOLOGY REPORT (SQ) ---
EXAM DESCRIPTION: CT ABD/PELVIS WITH IV ONLY COMPLETED DATE/TIME: 09/23/2018 2:59 pm REASON FOR STUDY: llq abdominal pain, hx diverticulitis COMPARISON: 08/11/2017 TECHNIQUE: CT scan of the abdomen and pelvis performed using helical scanning technique with dynamic intravenous contrast injection. No oral contrast. Images reviewed with lung, soft tissue, and bone windows. Reconstructed coronal and sagittal MPR images reviewed. Delayed images for evaluation of the urinary system also acquired. All images stored on PACS. All CT scanners at this facility use dose modulation, iterative reconstruction, and/or weight based d osing when appropriate to reduce radiation dose to as low as reasonably achievable (ALARA). [facility]: Dose Right [facility]: CareDose [facility]: Dose Right [facility]: Teradose 4D [facility]: WIB CONTRAST TYPE AND DOSE: contrast/concentration: Isovue 350.00 mg/ml; Total Contrast Delivered: 100.0 ml; Total Saline Delivered: 72.0 ml RENAL FUNCTION: GFR > 60. RADIATION DOSE: CT Rad equipment meets quality standard of care and radiation dose reduction techniq ues were employed. CTDIvol: 20.0 - 20.9 mGy. DLP: 2495 mGy-cm.. LIMITATIONS: None. FINDINGS: LOWER CHEST: No significant findings. No nodules or infiltrates. LIVER: Normal size. No masses. No dilated ducts. SPLEEN: Normal size. No focal lesions. PANCREAS: No masses. No significant calcifications. No adjacent inflammation or peripancreatic fluid collections. Pancreatic duct not dilated. GALLBLADDER: No identified stones by CT criteria. No inflammatory changes to suggest cholecystitis. ADRENAL GLANDS: No significant masses or asymmetry. RIGHT KIDNEY AND URETER: No solid masses. No significant calcifications. No hydronephrosis or hyd roureter. LEFT KIDNEY AND URETER: No solid masses. No significant calcifications. No hydronephrosis or hydr oureter. AORTA AND VESSELS: No aneurysm. No dissection. Renal arteries, SMA, celiac without stenosis. RETROPERITONEUM: No retroperitoneal adenopathy, hemorrhage or masses. BOWEL AND PERITONEAL CAVITY: Mesenteric stranding adjacent to sigmoid colon segment containing multip le diverticula. No free air or ascites. No obstruction. APPENDIX: Surgically absent. PELVIS: No mass. No free fluid. Normal bladder. ABDOMINAL WALL: No masses. No hernias. BONES: Nothing acute. OTHER: No other significant finding. IMPRESSION: Sigmoid diverticulitis. TECHNICAL DOCUMENTATION: JOB ID: [id number] Quality ID # [id number]: Final reports with documentation of one or more dose reduction techniques (e.g., Au tomated exposure control, adjustment of the mA and/or kV according to patient size, use of iterative reconstruction technique) 2010 [employer] All Rights Reserved Reading location - IP/workstation name: [email or web address]
[2018-09-23 15:14] LABS: ALANINE AMINOTRANSFERASE 40 U/L (21-72); ALBUMIN 4.4 g/dL (3.5-5.0); ALKALINE PHOSPHATASE 62 U/L (38-126); ANION GAP 10 (5-19); ASPARTATE AMINO TRANSFERASE 25 U/L (17-59); BILIRUBIN,DIRECT 0.3 mg/dL (0.0-0.4); BILIRUBIN,TOTAL 0.3 mg/dL (0.2-1.3); BLOOD UREA NITROGEN 13 mg/dL (7-20); CALCIUM 10.1 mg/dL (8.4-10.2); CARBON DIOXIDE 27 mmol/L (22-30); CHLORIDE 105 mmol/L (98-107); GLUCOSE 102 mg/dL (75-110); LIPASE 39.9 U/L (23-300); POTASSIUM 4.5 mmol/L (3.6-5.0); SODIUM 142.4 mmol/L (137-145)
[2018-09-23] MEDS ORDERED: MAGNESIUM CITRATE 296 ML BOTTLE PO ONE (15:54)
--- NOTE | 2018-09-23 16:06 | ER Document Report ---
ED GI/ - General Chief Complaint: Abdominal Pain Stated Complaint: ABDOMINAL PAIN Time Seen by Provider: 09/23/18 14:01 Primary Care Provider: SHANE MAGDALENO DO [Primary Care Provider] - Follow up as needed SHANNAN HANKINS MD [ACTIVE STAFF] - Follow up as needed Mode of Arrival: Ambulatory Information source: Patient Notes: 38-year-old male presents to ED for complaint of abdominal pain. He states he was seen yesterday and sent home on Augmentin and Flagyl. He states he has a previous history of diverticulitis and states this feels the same. His pain is in his left lower quadrant. He states he is also had constipation with hard little rabbit stools. TRAVEL OUTSIDE OF THE [place] IN LAST 30 DAYS: No - HPI Patient complains to provider of: Abdominal pain Onset: Other Timing/Duration: Gradual Quality of pain: Cramping Severity at maximum: Severe Severity in ED: Moderate Pain Level: 3 Location: LLQ Associated symptoms: Nausea Exacerbated by: Movement Relieved by: Denies Similar symptoms previously: Yes Recently seen / treated by doctor: Yes - Related Data Allergies/Adverse Reactions: No Known Allergies Allergy (Verified 09/23/18 13:05) Past Medical History - General Information source: Patient - Social History Smoking Status: Current Every Day Smoker Cigarette use (# per day): Yes - Pack per day Chew tobacco use (# tins/day): No Smoking Education Provided: Yes - 4 minutes Frequency of alcohol use: Social Drug Abuse: None Occupation: [employer] Family History: CAD, DM, Hyperlipidemia, Hypertension, Malignancy - mom with colon cancer Patient has suicidal ideation: No Patient has homicidal ideation: No - Past Medical History Cardiac Medical History: Reports: None Pulmonary Medical History: Reports: None EENT Medical History: Reports: None Neurological Medical History: Reports: None Endocrine Medical History: Reports: None Renal/ Medical History: Reports: None Malignancy Medical History: Reports None GI Medical History: Reports: Hx Diverticulitis Musculoskeletal Medical History: Reports None Skin Medical History: Reports None Psychiatric Medical History: Reports: None Traumatic Medical History: Reports: None Infectious Medical History: Reports: None Past Surgical History: Reports: Hx Appendectomy - Immunizations Immunizations up to date: Yes Hx Diphtheria, Pertussis, Tetanus Vaccination: Yes Review of Systems - Review of Systems Constitutional: No symptoms reported EENT: No symptoms reported Cardiovascular: No symptoms reported Respiratory: No symptoms reported Gastrointestinal: Abdominal pain, Constipation. denies: Vomiting Genitourinary: No symptoms reported Male Genitourinary: No symptoms reported Musculoskeletal: No symptoms reported Skin: No symptoms reported Hematologic/Lymphatic: No symptoms reported Neurological/Psychological: No symptoms reported -: Yes All other systems reviewed and negative Physical Exam - Vital signs Vitals: Temp Pulse Resp BP Pulse Ox 97.8 F 100 18 135/74 H 97 09/23/18 13:10 09/23/18 13:10 09/23/18 13:10 09/23/18 13:10 09/23/18 13:10 Interpretation: Normal - General General appearance: Appears well, Alert - HEENT Head: Normocephalic, Atraumatic Eyes: Normal Pupils: PERRL - Respiratory Respiratory status: No respiratory distress Chest status: Nontender Breath sounds: Normal Chest palpation: Normal - Cardiovascular Rhythm: Regular Heart sounds: Normal auscultation Murmur: No - Abdominal Inspection: Normal Distension: No distension Bowel sounds: Normal Tenderness: Tender - llq Organomegaly: No organomegaly. No: Hepatomegaly, Splenomegaly - Back Back: Normal, Nontender - Extremities General upper extremity: Normal inspection, Nontender, Normal color, Normal ROM, Normal temperature General lower extremity: Normal inspection, Nontender, Normal color, Normal ROM, Normal temperature, Normal weight bearing. No: Pamela's sign - Neurological Neuro grossly intact: Yes Cognition: Normal Orientation: AAOx4 [place] Coma Scale Eye Opening: Spontaneous [place] Coma Scale Verbal: Oriented [place] Coma Scale Motor: Obeys Commands Mesfin Coma Scale Total: 15 Speech: Normal Motor strength normal: LUE, RUE, LLE, RLE Sensory: Normal - Psychological Associated symptoms: Normal affect, Normal mood - Skin Skin Temperature: Warm Skin Moisture: Dry Skin Color: Normal Course - Re-evaluation Re-evalutation: 09/23/18 16:29 Discussed assessment, labs, CT, and patient's history with Dr. Lincoln. Also discussed use of MiraLAX and mag citrate for his constipation. Dr. Lincoln was agreement with treatment plan and patient was discharged home. - Vital Signs Vital signs: Temp Pulse Resp BP Pulse Ox 97.3 F 77 18 131/84 H 98 09/23/18 16:23 09/23/18 16:23 09/23/18 16:23 09/23/18 16:23 09/23/18 16:23 - Laboratory Result Diagrams: 09/23/18 14:24 09/23/18 14:24 Laboratory results interpreted by me: 09/23/18 09/23/18 14:24 14:24 WBC 12.1 H RDW 14.2 H Absolute Neutrophils 9.2 H Urine Urobilinogen 2.0 H Ur Leukocyte Esterase TRACE H - Diagnostic Test Radiology reviewed: Image reviewed, Reports reviewed Discharge - Discharge Clinical Impression: Diverticulitis Condition: Stable Disposition: HOME, SELF-CARE Additional Instructions: Diverticulitis You have been diagnosed as having diverticulitis. This is an inflammation of a small pouch attached to the colon, called a diverticulum. Many of these small pouches can form on the colon as you get older. They are often caused by constipation. When inflamed or infected, symptoms arise -- usually abdominal pain, constipation or diarrhea, fever, and blood in the stool. Severe diverticulitis may require hospitalization. More mild cases are usually treated with antibiotics and clear liquid diet. As you improve, a diet low in residue (one which forms little stool) is prescribed. When you are better, you should eat a high-fiber diet. Stool softeners (like Metamucil) are usually recommended. Call the doctor or go to the hospital if there is increasing pain, vomiting, high fever, large amounts of blood passed, or if bowel movements cease. Augmentin Augmentin is a mixture of amoxicillin and clavulanate. Amoxicillin is a member of the penicillin family. It covers the germs likely to cause ear, bronchial, and urinary infections better than plain penicillin. The addition of clavulanate allows it to cover staph infections of the skin, as well as resistant cases of ear and sinus infections. Your physician has chosen Augmentin for you because of the special nature of your situation. Augmentin is best taken with meals. Nausea after taking the medication is rare, but can occur. Diarrhea can occur, particularly in small children. Vaginal yeast infections, and oral thrush in infants are also common. Contact your physician if these problems occur. Allergy to penicillins is common. If you have had an allergic reaction to any drug of the penicillin family, you should never take any other penicillin. Notify your doctor at once if you develop hives, shortness of breath, swelling, or faintness. Metronidazole Metronidazole (Flagyl) has been prescribed on 10/22/2018. This medication is used to kill a type of bacteria called anaerobes, and protozoan parasites such as trichomonas and Giardia. Flagyl often causes a metallic taste in the mouth and mild nausea. Do not use alcohol in any form with Flagyl (including alcohol in medication elixirs). Flagyl interacts with alcohol to cause flushing, palpitations, headache, stomach cramps, and vomiting. Do not use Flagyl if you are taking Antabuse (disulfiram). Call the doctor at once if you develop rash, shortness of breath, itching, or lightheadedness. Constipation Constipation is a common problem. It is especially likely as you get older. Constipation is a common cause of abdominal pain, but sometimes causes no symptoms at all. Causes of constipation include certain medications, dehydr ation, diets, inactivity, and low-fiber intake. Rarely, it can be a symptom of underlying disease. The physician has evaluated you for this. Avoid constipation by eating a diet high in fiber, fruits, and vegetables. Drink plenty of liquids. Get regular exercise. If possible, avoid constipating medicines like narcotic pain medication. Some vitamin tablets can cause constipation. Stool softeners may be needed for difficult cases. An excellent stool softener is Konsyl which is available at [employer] [employer] [facility] store. Just add a teaspoon to a glass of pineapple or orange juice daily or twice a day if needed. Laxatives are useful for occasional constipation. You should use them only when necessary. Too-frequent use can make your bowels dependent on them. Some over the counter laxatives available without prescription are: Milk of Magnesia, 1-2 tablespoons twice a day Dulcolax, 5 mg pill or 10 mg suppository. Citrate of Magnesia, 4-5 ounces a day for a day or two For acute constipation, Fleet's Enemas and Dulcolax suppositories are helpful. Chronic, civil engineer land development use of laxatives or enemas is not a good idea. Your bowel may become dependant on them. You do not need to have a bowel movement every day. Many people do fine with a bowel movement every three or four days. You should call your doctor or return for re-evaluation if you pass blood in the stool, or if you develop fever or increasing abdominal pain. FOLLOW-UP CARE: If you have been referred to a physician for follow-up care, call the physicians office for an appointment as you were instructed or within the next two days. If you experience worsening or a significant change in your symptoms, notify the physician immediately or return to the Emergency Department at any time for re-evaluation. Forms: Elevated Blood Pressure, Smoking Cessation Education, Return to Work Referrals: SHANE MAGDALENO DO [Primary Care Provider] - Follow up as needed SHANNAN HANKINS MD [ACTIVE STAFF] - Follow up as needed
[2018-09-23 16:28] VITALS: BP 135/74
== END 2018-09-23 16:34 | disposition home or self-care (01) ==
LOC: ER 13:04
DX: K57.92 Diverticulitis of intestine, part unspecified, without perforation or abscess without bleeding (principal); R10.32 Left lower quadrant pain; R11.0 Nausea; K59.00 Constipation, unspecified; F17.210 Nicotine dependence, cigarettes, uncomplicated
CPT/HCPCS: 99406; 99284; 96361; 96374; 96375; 36415; 83690; 85025; 80053; 81001; 74177; J3490; J2270; S0164; J2405; J7120

== ENCOUNTER 2019-03-09 16:43 | Inpatient (IN) | payer OTHER ==
[2019-03-09] MEDS ORDERED: MORPHINE SULFATE 10 MG/ML INJ IV ONE ×2 (17:55→20:07)
[2019-03-09] MEDS ORDERED: NORMAL SALINE 1000 ML 1,000 ML IV ONE (17:55)
[2019-03-09] MEDS ORDERED: ONDANSETRON HCL INJ/PF 4 MG/2 ML SDV IV ONE (17:55)
--- NOTE | 2019-03-09 17:59 | ER Document Report ---
ED Medical Screen (RME) - General Chief Complaint: Abdominal Pain Stated Complaint: ABDOMINAL PAIN Time Seen by Provider: 03/09/19 17:48 Primary Care Provider: SHANE MAGDALENO DO [Primary Care Provider] - Follow up as needed Notes: Patient is a 38-year-old male presents to the emergency department with a chief complaint of abdominal pain. Patient states he does have a history of diverticulitis and that this feels very similar. Patient states on Sunday he developed umbilical pain that radiates to the entire lower abdomen. Patient states he attempted to eat chicken noodle soup over the weekend but then d eveloped right upper quadrant pain. Patient has a history of an appendectomy. Patient states his last bowel movement was Sunday and since then he has felt constipated. Patient states he tried to take Ex-Lax with minimal relief. Patient states this morning he was having sweats and nausea from the pain. Patient denies blood in the stool but reports his stool this morning was slightly darker than normal. TRAVEL OUTSIDE OF THE [place] IN LAST 30 DAYS: No - Related Data Allergies/Adverse Reactions: No Known Allergies Allergy (Verified 03/09/19 16:43) Past Medical History - Social History Chew tobacco use (# tins/day): No Frequency of alcohol use: None Drug Abuse: None Family history: Reviewed & Not Pertinent - Past Medical History Cardiac Medical History: Denies: Hx Coronary Artery Disease, Hx Heart Attack, Hx Hypertension Pulmonary Medical History: Denies: Hx Asthma, Hx Bronchitis, Hx COPD, Hx Pneumonia Neurological Medical History: Denies: Hx Cerebrovascular Accident, Hx Seizures Renal/ Medical History: Denies: Hx Peritoneal Dialysis GI Medical History: Reports: Hx Diverticulitis Musculoskeltal Medical History: Denies Hx Arthritis Past Surgical History: Reports: Hx Appendectomy - Immunizations Immunizations up to date: Yes Hx Diphtheria, Pertussis, Tetanus Vaccination: Yes History of Influenza Vaccine for 04/2017 - 09/2017 Season: No Physical Exam - Vital signs Vitals: Temp Pulse Resp BP Pulse Ox 99.2 F 130 H 17 150/101 H 96 03/09/19 16:48 03/09/19 16:48 03/09/19 16:48 03/09/19 16:48 03/09/19 16:48 - Abdominal Inspection: Obese Distension: No distension Bowel sounds: Normal Tenderness: Tender - RUQ and generalized lower abdominal tenderness. Course - Re-evaluation Re-evalutation: 03/09/19 18:00 Patient will require a thorough abdominal examination in the back. I have started basic labs, pain control, and IV fluids. I have greeted and performed a rapid initial assessment of this patient. A comprehensive ED assessment and evaluation of the patient, analysis of test results and completion of the medical decision making process will be conducted by additional ED providers. - Vital Signs Vital signs: Temp Pulse Resp BP Pulse Ox 99.2 F 130 H 17 150/101 H 96 03/09/19 16:48 03/09/19 16:48 03/09/19 16:48 03/09/19 16:48 03/09/19 16:48 Doctor's Discharge - Discharge Referrals: SHANE MAGDALENO DO [Primary Care Provider] - Follow up as needed
[2019-03-09 18:16] LABS: ABSOLUTE BASOPHILS # (AUTO) 0.2 10^3/uL (0.0-0.2); ABSOLUTE EOSINOPHILS # (AUTO) 0.2 10^3/uL (0.0-0.6); ABSOLUTE LYMPHOCYTES (AUTO) 2.5 10^3/uL (0.5-4.7); ABSOLUTE MONOCYTES (AUTO) 1.2 10^3/uL (0.1-1.4); ABSOLUTE NEUT (AUTO) 15.1 10^3/uL (1.7-8.2); BASOPHILS % (AUTO) 1.1 % (0-2); EOSINOPHILS % (AUTO) 0.8 % (0-6); HEMATOCRIT 45.7 % (37.9-51.0); HEMOGLOBIN 15.5 g/dL (13.5-17.0); MEAN CORPUSCULAR HEMOGLOBIN 32.1 pg (27.0-33.4); MEAN CORPUSCULAR VOLUME 95 fl (80-97); MONOCYTES % (AUTO) 6.1 % (3-13); PLATELET COUNT 236 10^3/uL (150-450); RED BLOOD COUNT 4.83 10^6/uL (4.35-5.55); RED CELL DISTRIBUTION WIDTH 13.6 % (11.5-14.0); TOTAL CELLS COUNTED % (AUTO) 100 %; WHITE BLOOD COUNT 19.1 10^3/uL (4.0-10.5)
[2019-03-09] MEDS ORDERED: METRONIDAZOLE 500 MG/NS RTU 100 ML IV ONE (18:19)
[2019-03-09] MEDS ORDERED: AMPICILLIN SOD/SULBACTAM 3 GM VIAL IV ONE (18:19)
[2019-03-09 18:21] LABS: AMORPHOUS SEDIMENT,URINE TRACE /HPF; APPEARANCE,URINE SLIGHTLY-CLOUDY; BILIRUBIN,URINE NEGATIVE (NEGATIVE); GLUCOSE, URINE NEGATIVE (NEGATIVE); KETONES,URINE TRACE mg/dL (NEGATIVE); LEUKOCYTE ESTERASE,URINE NEGATIVE (NEGATIVE); NITRITE,URINE NEGATIVE (NEGATIVE); PROTEIN,URINE 100 mg/dL (NEGATIVE); URINE SPECIFIC GRAVITY 1.028
--- NOTE | 2019-03-09 18:21 | ER Document Report ---
ED General - General Chief Complaint: Abdominal Pain Stated Complaint: ABDOMINAL PAIN Time Seen by Provider: 03/09/19 17:48 Primary Care Provider: SHANE MAGDALENO DO [Primary Care Provider] - Follow up as needed Notes: 38-year male presents with significant left lower quadrant pain worsening over 2 days worse with bumps, worse with movement associate with nausea vomiting anorexia. Subjective fevers and chills. "I think diverticulitis is coming back." His bowel habits have changed also, he is having decreased stool and more constipation. TRAVEL OUTSIDE OF THE [place] IN LAST 30 DAYS: No - Related Data Allergies/Adverse Reactions: No Known Allergies Allergy (Verified 03/09/19 16:43) Past Medical History - Social History Smoking Status: Current Every Day Smoker Chew tobacco use (# tins/day): No Frequency of alcohol use: None Drug Abuse: None Family History: CAD, DM, Hyperlipidemia, Hypertension, Malignancy - mom with colon cancer Patient has suicidal ideation: No Patient has homicidal ideation: No - Past Medical History Cardiac Medical History: Denies: Hx Coronary Artery Disease, Hx Heart Attack, Hx Hypertension Pulmonary Medical History: Denies: Hx Asthma, Hx Bronchitis, Hx COPD, Hx Pneumonia Neurological Medical History: Denies: Hx Cerebrovascular Accident, Hx Seizures Renal/ Medical History: Denies: Hx Peritoneal Dialysis GI Medical History: Reports: Hx Diverticulitis Musculoskeletal Medical History: Denies Hx Arthritis Past Surgical History: Reports: Hx Appendectomy - Immunizations Immunizations up to date: Yes Hx Diphtheria, Pertussis, Tetanus Vaccination: Yes Review of Systems - Review of Systems Notes: REVIEW OF SYSTEMS GEN: See HPI ENT: Denies sore throat, nasal discharge, ear pain EYES: Denies blurry vision, eye pain, discharge CV: Denies chest pain, palpitations, edema RESP: Denies cough, shortness of breath, wheezing GI: See HPI MSK: Denies joint pain/swelling, edema, SKIN: Denies rash, skin lesions LYMPH: Denies swollen glands/lymph nodes NEURO: Denies headache, focal weakness or numbness, dizziness PSYCH: Denies depression, suicidal or homicidal ideation PHYSICAL EXAMINATION General: No acute distress, well-nourished Head: Atraumatic, normocephalic ENT: Mouth normal, oropharynx moist, no exudates or tonsillar enlargement Eyes: Conjunctiva normal, pupils equal, lids normal Neck: No JVD, supple, no guarding CVS: Normal rate, regular rhythm, no murmurs Resp: No resp distress, equal and normal breath sounds bilaterally GI: To severe suprapubic and left lower quadrant tenderness no other tenderness, no guarding Ext: No deformities, no edema, normal range of motion in upper and lower ext Back: No CVA or midline TTP Skin: No rash, warm Lymphatic: No lymphadeopathy noted Neuro: Awake, alert. Face symmetric. GCS 15. Physical Exam - Vital signs Vitals: Temp Pulse Resp BP Pulse Ox 99.2 F 130 H 17 150/101 H 96 03/09/19 16:48 03/09/19 16:48 03/09/19 16:48 03/09/19 16:48 03/09/19 16:48 Course - Re-evaluation Re-evalutation: 03/09/19 18:19 Leukocytosis with abdominal pain and guarding likely diverticular-itis. Patient does not have an appendix. I will scan him after he has pain medicine, make him n.p.o. given fluids. 03/09/19 20:15 Temp climbed up. He is technically septic, be given fluids broad-spectrum antibiotics to cover preventive colitis. CT shows time to place but not perforated. His heart rate is come down he feels better after medications. I discussed him with Dr. Ba for admission to the hospital. - Vital Signs Vital signs: Temp Pulse Resp BP Pulse Ox 99.6 F 130 H 16 135/82 H 94 03/09/19 20:01 03/09/19 16:48 03/09/19 19:02 03/09/19 19:02 03/09/19 19:02 - Laboratory Result Diagrams: 03/09/19 18:05 03/09/19 18:05 Laboratory results interpreted by me: 03/09/19 03/09/19 03/09/19 18:05 18:05 18:05 WBC 19.1 H Seg Neutrophils % 79.0 H Absolute Neutrophils 15.1 H Glucose 133 H Urine Protein 100 H Urine Ketones TRACE H Urine Urobilinogen 2.0 H - Diagnostic Test Radiology reviewed: Image reviewed, Reports reviewed Discharge - Discharge Clinical Impression: Diverticulitis Condition: Good Disposition: ADMITTED INPATIENT Admitting Provider: James (Hospitalist) Unit Admitted: Medical Floor Referrals: SHANE MAGDALENO, [Primary Care Provider] - Follow up as needed
[2019-03-09 18:23] LABS: COLOR,URINE DARK YELLOW
[2019-03-09 18:31] LABS: ALBUMIN 4.7 g/dL (3.5-5.0); ALKALINE PHOSPHATASE 79 U/L (38-126); ANION GAP 10 (5-19); ASPARTATE AMINO TRANSFERASE 21 U/L (17-59); BILIRUBIN,DIRECT 0.2 mg/dL (0.0-0.4); BILIRUBIN,TOTAL 0.6 mg/dL (0.2-1.3); BLOOD UREA NITROGEN 14 mg/dL (7-20); CALCIUM 9.7 mg/dL (8.4-10.2); CARBON DIOXIDE 30 mmol/L (22-30); CHLORIDE 100 mmol/L (98-107); GLUCOSE 133 mg/dL (75-110); POTASSIUM 4.4 mmol/L (3.6-5.0); TOTAL PROTEIN 7.5 g/dL (6.3-8.2)
[2019-03-09] MEDS ORDERED: METRONIDAZOLE 500 MG/NS RTU 500 MG/100 ML RTUPB IV ONE (19:47)
--- NOTE | 2019-03-09 19:56 | RADIOLOGY REPORT (SQ) ---
EXAM DESCRIPTION: CT ABD/PELVIS WITH IV ONLY COMPLETED DATE/TIME: 03/09/2019 7:39 pm REASON FOR STUDY: Left lower quadrant pain with history of diverticu COMPARISON: CT abdomen pelvis 09/23/2018 TECHNIQUE: CT scan of the abdomen and pelvis performed using helical scanning technique with dynamic intravenous contrast injection. No oral contrast. Images reviewed with lung, soft tissue, and bone windows. Reconstructed coronal and sagittal MPR images reviewed. Delayed images for evaluation of the urinary system also acquired. All images stored on PACS. All CT scanners at this facility use dose modulation, iterative reconstruction, and/or weight based d osing when appropriate to reduce radiation dose to as low as reasonably achievable (ALARA). [facility]: Dose Right [facility]: CareDose [facility]: Dose Right [facility]: Teradose 4D [facility]: Graffiti CONTRAST TYPE AND DOSE: contrast/concentration: Isovue 350.00 mg/ml; Total Contrast Delivered: 100.0 ml; Total Saline Delivered: 50.0 ml 100 mL Isovue 350- low osmolar. RENAL FUNCTION: BUN 14, creatinine 0.98 RADIATION DOSE: CT Rad equipment meets quality standard of care and radiation dose reduction techniq ues were employed. CTDIvol: 20.4 - 21.0 mGy. DLP: 2430 mGy-cm.. LIMITATIONS: None. FINDINGS: LOWER CHEST: No significant findings. No nodules or infiltrates. LIVER: Normal size. No masses. No dilated ducts. SPLEEN: Normal size. No focal lesions. PANCREAS: No masses. No significant calcifications. No adjacent inflammation or peripancreatic fluid collections. Pancreatic duct not dilated. GALLBLADDER: No identified stones by CT criteria. No inflammatory changes to suggest cholecystitis. ADRENAL GLANDS: No significant masses or asymmetry. RIGHT KIDNEY AND URETER: No solid masses. No significant calcifications. No hydronephrosis or hyd roureter. LEFT KIDNEY AND URETER: No solid masses. No significant calcifications. No hydronephrosis or hydr oureter. AORTA AND VESSELS: No aneurysm. No dissection. Renal arteries, SMA, celiac without stenosis. RETROPERITONEUM: No retroperitoneal adenopathy, hemorrhage or masses. BOWEL AND PERITONEAL CAVITY: Long segment sigmoid colon wall thickening and enhancement with surround ing inflammatory fat stranding. A few colonic diverticula are noted. No free air. APPENDIX: Surgically absent. PELVIS: No mass. No free fluid. Normal bladder. ABDOMINAL WALL: No masses. No hernias. BONES: No significant or acute findings. OTHER: No other significant finding. IMPRESSION: Acute sigmoid colitis. Again, this may be attributed to acute diverticulitis provided u nderlying diverticular disease, although repeat occurrences may indicate other underlying inflammator y etiologies such as IBD. TECHNICAL DOCUMENTATION: JOB ID: [id number] Quality ID # [id number]: Final reports with documentation of one or more dose reduction techniques (e.g., Au tomated exposure control, adjustment of the mA and/or kV according to patient size, use of iterative reconstruction technique) 2010 [employer]- All Rights Reserved Reading location - IP/workstation name: [email or web address]
[2019-03-09] MEDS ORDERED: ACETAMINOPHEN 325 MG TABLET PO PRN (20:27)
[2019-03-09] MEDS ORDERED: ZOLPIDEM TARTRATE 5 MG TABLET PO PRN (20:27)
[2019-03-09] MEDS ORDERED: MAG HYDROX/AL HYDROX/SIMETH SUSP 30 ML UDCUP PO PRN (20:27)
[2019-03-09] MEDS ORDERED: MAGNESIUM HYDROXIDE SUSP 30 ML UDCUP PO PRN (20:27)
[2019-03-09] MEDS ORDERED: ONDANSETRON HCL INJ/PF 4 MG/2 ML SDV IV PRN (20:27)
[2019-03-09] MEDS ORDERED: DEXTROSE 40% GEL 15 GM TUBE PO PRN ×2 (20:42)
[2019-03-09] MEDS ORDERED: GLUCAGON,HUMAN RECOMB 1 MG INJ IM PRN (20:42)
[2019-03-09] MEDS ORDERED: DEXTROSE 50%-WATER 25 GM/50 ML DISP.SYRIN IV PRN ×2 (20:42)
--- NOTE | 2019-03-09 21:39 | PDOC H&P ---
<ROSAURA ORDAZ - Last Filed: 03/09/19 22:14> History of Present Illness Admission Date/PCP: 03/09/19 20:28 SHANE MAGDALENO DO History of Present Illness: Abdominal and pelvic CT scan revealed acute sigmoid colitis likely with diverticulitis. The patient was given IV morphine sulfate for pain as well as IV Unasyn and Flagyl and 4 mg of IV Zofran. He will be admitted to the medical bed for further evaluation and management. Social History Amount of Alcoholic Beverages Per Day: 3-4 times a week about 3 drinks Family History Parental Family History Reviewed: Yes Children Family History Reviewed: Yes Sibling(s) Family History Reviewed.: Yes Medication/Allergy Home Medications: Metformin HCl [Metformin HCl ER] 500 mg PO DAILY 09/05/17 Amox Tr/Potassium Clavulanate [Augmentin 875-125 Tablet] 1 tab PO BID 10 Days tablet 09/21/18 Metronidazole [Flagyl 500 mg Tablet] 500 mg PO TID #30 tablet 09/21/18 Allergies/Adverse Reactions: No Known Allergies Allergy (Verified 03/09/19 16:43) Review of Systems Review of Systems: As per history of present illness. All pertinent systems were reviewed above. Constitutional, HEENT, cardiovascular, respiratory, GI, , musculoskeletal, neuro, psychiatric, endocrine, integumentary and hematologic systems were reviewed and are otherwise negative/unremarkable except for positive findings mentioned above in the HPI. Physical Exam Vital Signs: Temp Pulse Resp BP Pulse Ox 99.6 F 130 H 10 L 135/82 H 97 03/09/19 20:01 03/09/19 16:48 03/09/19 20:00 03/09/19 19:02 03/09/19 20:00 Intake & Output 03/08/19 03/09/19 03/10/19 06:59 06:59 06:59 Intake Total 1100 Balance 1100 Weight 129.7 kg Exam: Generally: Pleasant obese middle-aged male in no acute distress Vital signs-as listed Head - atraumatic, normocephalic. Pupils - equal, round and reactive to light and accommodation. Extraocular movements are intact. No scleral icterus. Oropharynx - moist mucous membranes and tongue. No pharyngeal erythema or exudate. Neck - supple. No JVD. Carotid pulses 2+ bilaterally. No carotid bruits. No palpable thyromegaly or lymphadenopathy. Cardiovascular - regular rate and rhythm. Normal S1 and S2. No murmurs, gallops or rubs. Lungs - clear to auscultation bilaterally. Abdomen - soft with left lower quadrant and suprapubic tenderness without rebound tenderness guarding or rigidity. Positive bowel sounds. No palpable organomegaly or masses. Extremities - no pitting edema, clubbing or cyanosis. Neuro - grossly non-focal. Skin - no rashes. and rectal exam - deferred. Results Laboratory Results: 03/09/19 18:05 03/09/19 18:05 03/09/19 03/09/19 03/09/19 18:05 18:05 18:05 WBC 19.1 H RBC 4.83 Hgb 15.5 Hct 45.7 MCV 95 MCH 32.1 MCHC 34.0 RDW 13.6 Plt Count 236 Seg Neutrophils % 79.0 H Lymphocytes % 13.0 Monocytes % 6.1 Eosinophils % 0.8 Basophils % 1.1 Absolute Neutrophils 15.1 H Absolute Lymphocytes 2.5 Absolute Monocytes 1.2 Absolute Eosinophils 0.2 Absolute Basophils 0.2 Sodium 139.6 Potassium 4.4 Chloride 100 Carbon Dioxide 30 Anion Gap 10 BUN 14 Creatinine 0.98 Est GFR ( Amer) > 60 Est GFR (Non-Af Amer) > 60 Glucose 133 H Calcium 9.7 Total Bilirubin 0.6 AST 21 Alkaline Phosphatase 79 Total Protein 7.5 Albumin 4.7 Lipase 39.8 Urine Color DARK YELLOW Urine Appearance SLIGHTLY-CLOUDY Urine pH 5.0 Ur Specific [place] 1.028 Urine Protein 100 H Urine Glucose (UA) NEGATIVE Urine Ketones TRACE H Urine Blood NEGATIVE Urine Nitrite NEGATIVE Ur Leukocyte Esterase NEGATIVE Urine WBC (Auto) 1 Urine RBC (Auto) 1 Impressions: Abdomen/Pelvis CT 03/09/19 18:17 IMPRESSION: Acute sigmoid colitis. Again, this may be attributed to acute diverticulitis provided underlying diverticular disease, although repeat occurrences may indicate other underlying inflammatory etiologies such as IBD. Assessment and Plan - Diagnosis (1) Acute diverticulitis Is this a current diagnosis for this admission?: Yes Plan: The patient will be admitted to medical bed. He will be placed on IV Cipro and Flagyl. Pain management will be provided. He will be hydrated with IV normal saline. We will place him on clear liquids tonight and this can be advanced as tolerated in a.m. (2) Sepsis Is this a current diagnosis for this admission?: Yes Plan: This is without severe sepsis or septic shock. He has associated tachycardia and fever as well as leukocytosis with his diverticulitis. We will place him on hydration with normal saline as mentioned above and continue IV antibiotic therapy. Blood cultures were obtained and will be followed. (3) Sinus tachycardia Is this a current diagnosis for this admission?: Yes Plan: This likely secondary to volume depletion and dehydration. He will be hydrated with IV normal saline and heart rate will be monitored. (4) Tobacco abuse Is this a current diagnosis for this admission?: Yes Plan: He was counseled for smoking cessation and will receive further counseling here. (5) Alcohol abuse Is this a current diagnosis for this admission?: Yes Plan: We will place on as needed Ativan and banana bag daily (6) DVT prophylaxis Is this a current diagnosis for this admission?: Yes Plan: Subcutaneous Lovenox - Time Time Spent with patient: 35 or more minutes Smoking Cessation Education: 3 to 10 minutes Medications reviewed and adjusted accordingly: Yes Anticipated discharge: Home Disposition: Admission to a medical bed - Inpatient Certification Medical Necessity: Need for Pain Control, Need for IV Antibiotics Post Hospital Care: D/C or Transfer Summary - Plan Summary Plan Summary: The plan of care was discussed in details with the patient. I answered all questions. The patient agreed to proceed with the above-mentioned plan. The patient is presumably full code. This note was created by [employer] dictating software and may contain typo errors that may have not been proofread. <LONIKAREL - Last Filed: 03/09/19 22:37> History of Present Illness Admission Date/PCP: 03/09/19 20:28 SHANE MAGDALENO DO Patient complains of: Abdominal pain History of Present Illness: TAMARA AARON is a 38 year old obese male with history of ongoing tobacco and EtOH abuse who presented to the emergency room with acute onset of left lower quadrant and suprapubic abdominal pain which have been worsening today with slightly diminished urine output and mild constipation. He denies any nausea or vomiting, melena or bright red bleeding per rectum. His last bowel movement was on Sunday. He denies any fever or chills. No cough or wheezing or shortness of breath. No dysuria, or hematuria or flank pain. Upon presentation to the emergency room, blood pressure was 135/82 with a pulse of 110 and a temperature of 99.6 with an pulse oximetry 94 to 97% on room air., Respiratory rate of 16. CBC showed a WBC of 19.1 with neutrophilia. CMP was unremarkable. Urinalysis showed 100 protein and was otherwise unremarkable. Abdominal and pelvic CT scan revealed acute sigmoid colitis likely with diverticulitis. The patient was given IV morphine sulfate for pain as well as IV Unasyn and Flagyl and 4 mg of IV Zofran. He will be admitted to the medical bed for further evaluation and management. Past Medical History Cardiac Medical History: Denies: Coronary Artery Disease, Myocardial Infarction, Hypertension Pulmonary Medical History: Denies: Asthma, Bronchitis, Chronic Obstructive Pulmonary Disease (COPD), Pneumonia Neurological Medical History: Denies: Seizures GI Medical History: Reports: Diverticulitis Musculoskeltal Medical History: Denies: Arthritis Hematology: Denies: Anemia Past Surgical History Past Surgical History: Reports: Appendectomy Social History Smoking Status: Current Every Day Smoker Family History Family History: CAD, DM, Hyperlipidemia, Hypertension, Malignancy - mom with colon cancer Parental Family History Reviewed: Yes Children Family History Reviewed: Yes Sibling(s) Family History Reviewed.: Yes Review of Systems Review of Systems: As per history of present illness. All pertinent systems were reviewed above. Constitutional, HEENT, cardiovascular, respiratory, GI, , musculoskeletal, neuro, psychiatric, endocrine, integumentary and hematologic systems were reviewed and are otherwise negative/unremarkable except for positive findings mentioned above in the HPI. Physical Exam Vital Signs: Temp Pulse Resp BP Pulse Ox 99.6 F 130 H 10 L 135/82 H 97 03/09/19 20:01 03/09/19 16:48 03/09/19 20:00 03/09/19 19:02 03/09/19 20:00 Intake & Output 03/08/19 03/09/19 03/10/19 06:59 06:59 06:59 Intake Total 1100 Balance 1100 Weight 129.7 kg Exam: Generally: Pleasant obese middle-aged male in no acute distress Vital signs-as listed Head - atraumatic, normocephalic. Pupils - equal, round and reactive to light and accommodation. Extraocular movements are intact. No scleral icterus. Oropharynx - moist mucous membranes and tongue. No pharyngeal erythema or exudate. Neck - supple. No JVD. Carotid pulses 2+ bilaterally. No carotid bruits. No palpable thyromegaly or lymphadenopathy. Cardiovascular - regular rate and rhythm. Normal S1 and S2. No murmurs, gallops or rubs. Lungs - clear to auscultation bilaterally. Abdomen - soft with left lower quadrant and suprapubic tenderness without rebound tenderness guarding or rigidity. Positive bowel sounds. No palpable organomegaly or masses. Extremities - no pitting edema, clubbing or cyanosis. Neuro - grossly non-focal. Skin - no rashes. and rectal exam - deferred. Results Laboratory Results: 03/09/19 18:05 03/09/19 18:05 03/09/19 03/09/19 03/09/19 18:05 18:05 18:05 WBC 19.1 H RBC 4.83 Hgb 15.5 Hct 45.7 MCV 95 MCH 32.1 MCHC 34.0 RDW 13.6 Plt Count 236 Seg Neutrophils % 79.0 H Lymphocytes % 13.0 Monocytes % 6.1 Eosinophils % 0.8 Basophils % 1.1 Absolute Neutrophils 15.1 H Absolute Lymphocytes 2.5 Absolute Monocytes 1.2 Absolute Eosinophils 0.2 Absolute Basophils 0.2 Sodium 139.6 Potassium 4.4 Chloride 100 Carbon Dioxide 30 Anion Gap 10 BUN 14 Creatinine 0.98 Est GFR ( Amer) > 60 Est GFR (Non-Af Amer) > 60 Glucose 133 H Calcium 9.7 Total Bilirubin 0.6 AST 21 Alkaline Phosphatase 79 Total Protein 7.5 Albumin 4.7 Lipase 39.8 Urine Color DARK YELLOW Urine Appearance SLIGHTLY-CLOUDY Urine pH 5.0 Ur Specific [place] 1.028 Urine Protein 100 H Urine Glucose (UA) NEGATIVE Urine Ketones TRACE H Urine Blood NEGATIVE Urine Nitrite NEGATIVE Ur Leukocyte Esterase NEGATIVE Urine WBC (Auto) 1 Urine RBC (Auto) 1 Impressions: Abdomen/Pelvis CT 03/09/19 18:17 IMPRESSION: Acute sigmoid colitis. Again, this may be attributed to acute diverticulitis provided underlying diverticular disease, although repeat occurrences may indicate other underlying inflammatory etiologies such as IBD. Assessment and Plan - Diagnosis (1) Acute diverticulitis Is this a current diagnosis for this admission?: Yes Plan: The patient will be admitted to medical bed. He will be placed on IV Cipro and Flagyl. Pain management will be provided. He will be hydrated with IV normal saline. We will place him on clear liquids tonight and this can be advanced as tolerated in a.m. (2) Sepsis Is this a current diagnosis for this admission?: Yes Plan: This is without severe sepsis or septic shock. He has associated tachycardia and fever as well as leukocytosis with his diverticulitis. We will place him on hydration with normal saline as mentioned above and continue IV antibiotic the rapy. Blood cultures were obtained and will be followed. (3) Sinus tachycardia Is this a current diagnosis for this admission?: Yes Plan: This likely secondary to volume depletion and dehydration. He will be hydrated with IV normal saline and heart rate will be monitored. (4) Tobacco abuse Is this a current diagnosis for this admission?: Yes Plan: He was counseled for smoking cessation and will receive further counseling here. (5) Alcohol abuse Is this a current diagnosis for this admission?: Yes Plan: We will place on as needed Ativan and banana bag daily (6) DVT prophylaxis Is this a current diagnosis for this admission?: Yes Plan: Subcutaneous Lovenox - Time Time Spent with patient: 35 or more minutes Smoking Cessation Education: 3 to 10 minutes Anticipated discharge: Home Disposition: Admission to a medical bed - Inpatient Certification Based on my medical assessment, after consideration of the patient's comorbidities, presenting symptoms, or acuity I expect that the services needed warrant INPATIENT care.: Yes I certify that my determination is in accordance with my understanding of Medicare's requirements for reasonable and necessary INPATIENT services [42 CFR 412.3e].: Yes Medical Necessity: Need for Pain Control, Need for IV Antibiotics Post Hospital Care: D/C or Transfer Summary - Plan Summary Plan Summary: The plan of care was discussed in details with the patient. I answered all questions. The patient agreed to proceed with the above-mentioned plan. The patient is presumably full code. This note was created by [employer] software and may contain typo errors that may have not been proofread. This note was created only by Karel Ramirez MD
[2019-03-09] MEDS ORDERED: INSULIN LISPRO 100 UNIT/ML 3 ML VIAL SUBCUT SCH (22:00)
[2019-03-09] MEDS ORDERED: LORAZEPAM INJ 2 MG/1 ML VIAL IV PRN (22:39)
[2019-03-09] MEDS ORDERED: CIPROFLOXACIN 400 MG/D5W RTU 400 MG/200 ML RTUPB IV ONE (23:00)
[2019-03-09] MEDS ORDERED: NORMAL SALINE 1000 ML 1,000 ML with POTASSIUM CHLORIDE 20 MEQ, MAGNESIUM SULFATE 8 MEQ,... IV ONE ×5 (23:00)
[2019-03-09] MEDS: MORPHINE SULFATE 10 MG/ML INJ IV PRN (23:24)
[2019-03-10] MEDS: NORMAL SALINE 1000 ML 1,000 ML IV PRN (00:13)
[2019-03-10] MEDS: OXYCODONE-ACETAMINOPHEN 5-325 MG TABLET PO PRN ×2 (02:00→06:00)
[2019-03-10] MEDS: METRONIDAZOLE 500 MG/NS RTU 500 MG/100 ML RTUPB IV SCH ×3 (02:00→17:30)
[2019-03-10 04:23] LABS: ABSOLUTE BASOPHILS # (AUTO) 0.1 10^3/uL (0.0-0.2); ABSOLUTE EOSINOPHILS # (AUTO) 0.1 10^3/uL (0.0-0.6); ABSOLUTE MONOCYTES (AUTO) 1.5 10^3/uL (0.1-1.4); BASOPHILS % (AUTO) 0.4 % (0-2); EOSINOPHILS % (AUTO) 0.7 % (0-6); HEMATOCRIT 40.6 % (37.9-51.0); HEMOGLOBIN 13.9 g/dL (13.5-17.0); LYMPHOCYTES % (AUTO) 10.6 % (13-45); MEAN CORPUSCULAR HEMOGLOBIN 32.3 pg (27.0-33.4); MEAN CORPUSCULAR HGB CONC 34.1 g/dL (32.0-36.0); MEAN CORPUSCULAR VOLUME 95 fl (80-97); MONOCYTES % (AUTO) 7.9 % (3-13); PLATELET COUNT 183 10^3/uL (150-450); RED BLOOD COUNT 4.29 10^6/uL (4.35-5.55); RED CELL DISTRIBUTION WIDTH 13.7 % (11.5-14.0); SEGMENTED NEUTROPHILS % (AUTO) 80.4 % (42-78); TOTAL CELLS COUNTED % (AUTO) 100 %; WHITE BLOOD COUNT 18.6 10^3/uL (4.0-10.5)
[2019-03-10 04:30] LABS: ANION GAP 8 (5-19); BLOOD UREA NITROGEN 11 mg/dL (7-20); CALCIUM 8.6 mg/dL (8.4-10.2); CARBON DIOXIDE 27 mmol/L (22-30); CHLORIDE 101 mmol/L (98-107); GLUCOSE 108 mg/dL (75-110)
[2019-03-10] MEDS ORDERED: NORMAL SALINE 1000 ML 1,000 ML with POTASSIUM CHLORIDE 20 MEQ, MAGNESIUM SULFATE 8 MEQ,... IV SCH ×15 (08:00→18:00)
[2019-03-10] MEDS ORDERED: ONDANSETRON HCL INJ/PF 4 MG/2 ML SDV IV PRN (08:00)
[2019-03-10] MEDS: MORPHINE SULFATE 10 MG/ML INJ IV PRN ×4 (09:14→23:02)
[2019-03-10] MEDS: CIPROFLOXACIN 400 MG/D5W RTU 400 MG/200 ML RTUPB IV SCH ×2 (09:18→21:36)
[2019-03-10] MEDS: ENOXAPARIN SODIUM INJ 40 MG/0.4 ML DISP.SYRIN SUBCUT SCH (09:21)
--- NOTE | 2019-03-10 14:40 | PDOC PROGRESS REPORT ---
Subjective Progress Note for:: 03/10/19 Subjective:: This is a 38 yr old male with 2 prior episodes of diverticulitis who presented with abdominal pain and was found to have acute sigmoid diverticulitis. He was started on IV antibiotics and pain medications. No acute event overnight. He appears to be in pain but he says his abdominal pain is much better this morning than when he came in. He says he had 2 regular non bloody non watery BM this morning. No nausea or vomiting. Reason For Visit: ACUTE SIGMOID DIVERTICULITIS Physical Exam Vital Signs: Temp Pulse Resp BP Pulse Ox 98.6 F 92 16 125/78 96 03/10/19 12:00 03/10/19 12:00 03/10/19 12:00 03/10/19 12:00 03/10/19 12:00 Intake & Output 03/09/19 03/10/19 03/11/19 06:59 06:59 06:59 Intake Total 1400 820 Balance 1400 820 Weight 288 lb 2.307 oz General appearance: PRESENT: no acute distress, well-developed, well-nourished Head exam: PRESENT: atraumatic, normocephalic Eye exam: PRESENT: conjunctiva pink, EOMI, PERRLA. ABSENT: scleral icterus Ear exam: PRESENT: normal external ear exam Mouth exam: PRESENT: moist, tongue midline Neck exam: ABSENT: carotid bruit, JVD, lymphadenopathy, thyromegaly Respiratory exam: PRESENT: clear to auscultation anne. ABSENT: rales, rhonchi, wheezes Cardiovascular exam: PRESENT: RRR. ABSENT: diastolic murmur, rubs, systolic murmur Pulses: PRESENT: normal dorsalis pedis pul GI/Abdominal exam: PRESENT: normal bowel sounds, soft. ABSENT: distended, guarding, mass, organolmegaly, rebound, tenderness Rectal exam: PRESENT: deferred Extremities exam: PRESENT: full ROM. ABSENT: calf tenderness, clubbing, pedal edema Neurological exam: PRESENT: alert, awake, oriented to person, oriented to place, oriented to time, oriented to situation, CN II-XII grossly intact. ABSENT: motor sensory deficit Results Laboratory Results: 03/10/19 03:53 03/10/19 03:53 03/09/19 03/09/19 03/09/19 18:05 18:05 18:05 WBC 19.1 H RBC 4.83 Hgb 15.5 Hct 45.7 MCV 95 MCH 32.1 MCHC 34.0 RDW 13.6 Plt Count 236 Seg Neutrophils % 79.0 H Lymphocytes % 13.0 Monocytes % 6.1 Eosinophils % 0.8 Basophils % 1.1 Absolute Neutrophils 15.1 H Absolute Lymphocytes 2.5 Absolute Monocytes 1.2 Absolute Eosinophils 0.2 Absolute Basophils 0.2 Sodium 139.6 Potassium 4.4 Chloride 100 Carbon Dioxide 30 Anion Gap 10 BUN 14 Creatinine 0.98 Est GFR ( Amer) > 60 Est GFR (Non-Af Amer) > 60 Glucose 133 H Calcium 9.7 Total Bilirubin 0.6 AST 21 Alkaline Phosphatase 79 Total Protein 7.5 Albumin 4.7 Lipase 39.8 Urine Color DARK YELLOW Urine Appearance SLIGHTLY-CLOUDY Urine pH 5.0 Ur Specific [place] 1.028 Urine Protein 100 H Urine Glucose (UA) NEGATIVE Urine Ketones TRACE H Urine Blood NEGATIVE Urine Nitrite NEGATIVE Ur Leukocyte Esterase NEGATIVE Urine WBC (Auto) 1 Urine RBC (Auto) 1 03/10/19 03/10/19 03:53 03:53 WBC 18.6 H RBC 4.29 L Hgb 13.9 Hct 40.6 MCV 95 MCH 32.3 MCHC 34.1 RDW 13.7 Plt Count 183 Seg Neutrophils % 80.4 H Lymphocytes % 10.6 L Monocytes % 7.9 Eosinophils % 0.7 Basophils % 0.4 Absolute Neutrophils 15.0 H Absolute Lymphocytes 2.0 Absolute Monocytes 1.5 H Absolute Eosinophils 0.1 Absolute Basophils 0.1 Sodium 136.4 L Potassium 4.0 Chloride 101 Carbon Dioxide 27 Anion Gap 8 BUN 11 Creatinine 0.84 Est GFR ( Amer) > 60 Est GFR (Non-Af Amer) > 60 Glucose 108 Calcium 8.6 Total Bilirubin AST Alkaline Phosphatase Total Protein Albumin Lipase Urine Color Urine Appearance Urine pH Ur Specific [place] Urine Protein Urine Glucose (UA) Urine Ketones Urine Blood Urine Nitrite Ur Leukocyte Esterase Urine WBC (Auto) Urine RBC (Auto) Impressions: Abdomen/Pelvis CT 03/09/19 18:17 IMPRESSION: Acute sigmoid colitis. Again, this may be attributed to acute diverticulitis provided underlying diverticular disease, although repeat o ccurrences may indicate other underlying inflammatory etiologies such as IBD. Assessment and Plan - Diagnosis (1) Acute diverticulitis Is this a current diagnosis for this admission?: Yes Plan: Slightly improved. Continue Flagyl and ciprofloxacin. Continue prn pain meds. (2) Tobacco abuse Is this a current diagnosis for this admission?: Yes Plan: Counseled on cessation. - Time Time Spent with patient: 15-24 minutes
[2019-03-11] MEDS: METRONIDAZOLE 500 MG/NS RTU 500 MG/100 ML RTUPB IV SCH ×2 (02:19→09:14)
[2019-03-11] MEDS: NORMAL SALINE 1000 ML 1,000 ML IV PRN (05:25)
[2019-03-11] MEDS: OXYCODONE-ACETAMINOPHEN 5-325 MG TABLET PO PRN ×2 (05:34→09:36)
[2019-03-11 07:57] LABS: ABSOLUTE EOSINOPHILS # (AUTO) 0.2 10^3/uL (0.0-0.6); ABSOLUTE LYMPHOCYTES (AUTO) 1.2 10^3/uL (0.5-4.7); ABSOLUTE MONOCYTES (AUTO) 0.9 10^3/uL (0.1-1.4); ABSOLUTE NEUT (AUTO) 9.8 10^3/uL (1.7-8.2); BASOPHILS % (AUTO) 0.3 % (0-2); EOSINOPHILS % (AUTO) 1.3 % (0-6); HEMATOCRIT 38.3 % (37.9-51.0); HEMOGLOBIN 12.9 g/dL (13.5-17.0); LYMPHOCYTES % (AUTO) 10.1 % (13-45); MEAN CORPUSCULAR HEMOGLOBIN 31.9 pg (27.0-33.4); MEAN CORPUSCULAR HGB CONC 33.6 g/dL (32.0-36.0); MEAN CORPUSCULAR VOLUME 95 fl (80-97); MONOCYTES % (AUTO) 7.8 % (3-13); PLATELET COUNT 171 10^3/uL (150-450); RED BLOOD COUNT 4.03 10^6/uL (4.35-5.55); RED CELL DISTRIBUTION WIDTH 13.5 % (11.5-14.0); SEGMENTED NEUTROPHILS % (AUTO) 80.5 % (42-78); TOTAL CELLS COUNTED % (AUTO) 100 %; WHITE BLOOD COUNT 12.2 10^3/uL (4.0-10.5)
[2019-03-11 08:09] LABS: ANION GAP 11 (5-19); BLOOD UREA NITROGEN 9 mg/dL (7-20); CALCIUM 8.5 mg/dL (8.4-10.2); CARBON DIOXIDE 25 mmol/L (22-30); CHLORIDE 103 mmol/L (98-107); GLUCOSE 120 mg/dL (75-110); POTASSIUM 4.5 mmol/L (3.6-5.0)
[2019-03-11] MEDS: ENOXAPARIN SODIUM INJ 40 MG/0.4 ML DISP.SYRIN SUBCUT SCH (09:10)
[2019-03-11] MEDS: CIPROFLOXACIN 400 MG/D5W RTU 400 MG/200 ML RTUPB IV SCH (09:14)
[2019-03-11 10:07] VITALS: BP 121/66
--- NOTE | 2019-03-11 13:28 | PDOC DISCHARGE SUMMARY ---
General - Admit/Disc Date/PCP Admission Date/Primary Care Provider: 03/09/19 20:28 SHANE MAGDALENO, DO Discharge Date: 03/11/19 - Discharge Diagnosis (1) Acute diverticulitis Is this a current diagnosis for this admission?: Yes Summary: 03/[id number]-lcde-old male admitted with acute diverticulitis started on IV Flagyl IV Cipro and IV pain medications he is able to tolerate the diet had a good bowel movement today. I requested him to stay at least another day to complete the therapy but they prefer to go home and to take the medications at home. Blood cultures are negative so far in 24 hours. (2) Tobacco abuse Is this a current diagnosis for this admission?: Yes Summary: 03/11/2019-patient is a chronic smoker smoking counseling was provided for more than 15 minutes. Strongly advised to quit smoking. (3) Morbid obesity with BMI of 45.0-49.9, adult Is this a current diagnosis for this admission?: No Summary: 03/11/2019-patient BMI is more than 45 diet exercise weight loss lifestyle modifications are discussed with the patient. - Additional Information Resuscitation Status: Full Code Discharge Diet: As Tolerated Discharge Activity: Activity As Tolerated Prescriptions: Ciprofloxacin 500 mg PO DAILY #7 bebo..rec Metronidazole [Flagyl 500 mg Tablet] 500 mg PO TID #21 tablet Oxycodone HCl/Acetaminophen [Percocet 5-325 mg Tablet] 1 tab PO Q8HP PRN #10 tablet PRN Reason: Home Medications: Ciprofloxacin 500 mg PO DAILY #7 [email or web address].[email or web address] 03/11/19 Metronidazole [Flagyl 500 mg Tablet] 500 mg PO TID #21 tablet 03/11/19 Oxycodone HCl/Acetaminophen [Percocet 5-325 mg Tablet] 1 tab PO Q8HP PRN #10 tablet 03/11/19 History of Present Illness History of Present Illness: TAMARA AARON is a 38 year old male 38 yr old male with 2 prior episodes of diverticulitis who presented with abdominal pain and was found to have acute sigmoid diverticulitis. He was started on IV antibiotics and pain medications. No acute event overnight. He appears to be in pain but he says his abdominal pain is much better this morning than when he came in. He says he had 2 regular non bloody non watery BM this morning. No nausea or vomiting. Hospital Course Hospital Course: 38-year-old male with previous history of diverticulitis admitted with sigmoid diverticulitis. Treated with Cipro and Flagyl patient said patient is pain is much better able to pass the stools wants to go home today. I explained to him that the cultures are pending so far but even with explanation he prefers to go home and follow-up with primary care physician in couple of days. Physical Exam Vital Signs: Temp Pulse Resp BP Pulse Ox 98.5 F 94 19 121/66 96 03/11/19 10:57 03/11/19 10:57 03/11/19 10:57 03/11/19 10:57 03/11/19 10:57 Intake & Output 03/10/19 03/11/19 03/12/19 06:59 06:59 06:59 Intake Total 1400 3943 300 Balance 1400 3943 300 Weight 130.7 kg 132.9 kg General appearance: PRESENT: no acute distress Head exam: PRESENT: atraumatic Eye exam: PRESENT: PERRLA Mouth exam: PRESENT: dry mucosa Teeth exam: PRESENT: poor dentation Neck exam: ABSENT: carotid bruit, JVD, lymphadenopathy, thyromegaly Respiratory exam: PRESENT: clear to auscultation anne. ABSENT: rales, rhonchi, wheezes Cardiovascular exam: PRESENT: RRR. ABSENT: diastolic murmur, rubs, systolic murmur GI/Abdominal exam: PRESENT: normal bowel sounds, soft. ABSENT: distended, guarding, mass, organolmegaly, rebound, tenderness Extremities exam: PRESENT: full ROM. ABSENT: calf tenderness, clubbing, pedal e ji Neurological exam: PRESENT: alert, awake, oriented to person, oriented to place, oriented to time, oriented to situation, CN II-XII grossly intact. ABSENT: motor sensory deficit Psychiatric exam: PRESENT: appropriate affect, normal mood. ABSENT: homicidal ideation, suicidal ideation Results Laboratory Results: 03/11/19 07:11 03/11/19 07:11 03/11/19 03/11/19 07:11 07:11 WBC 12.2 H RBC 4.03 L Hgb 12.9 L Hct 38.3 MCV 95 MCH 31.9 MCHC 33.6 RDW 13.5 Plt Count 171 Seg Neutrophils % 80.5 H Lymphocytes % 10.1 L Monocytes % 7.8 Eosinophils % 1.3 Basophils % 0.3 Absolute Neutrophils 9.8 H Absolute Lymphocytes 1.2 Absolute Monocytes 0.9 Absolute Eosinophils 0.2 Absolute Basophils 0.0 Sodium 138.5 Potassium 4.5 Chloride 103 Carbon Dioxide 25 Anion Gap 11 BUN 9 Creatinine 0.79 Est GFR ( Amer) > 60 Est GFR (Non-Af Amer) > 60 Glucose 120 H Calcium 8.5 Impressions: Abdomen/Pelvis CT 03/09/19 18:17 IMPRESSION: Acute sigmoid colitis. Again, this may be attributed to acute diverticulitis provided underlying diverticular disease, although repeat occurrences may indicate other underlying inflammatory etiologies such as IBD. Qualifiers - * PATIENT BEING DISCHARGED WITH ANY OF THE FOLLOWING DIAGNOSIS: No VTE patient discharged on overlapping Therapy?: No Acute Heart Failure - Is this a Heart Failure Patient?: No
== END 2019-03-11 12:07 | disposition home or self-care (01) | DRG 392 ==
LOC: ER 16:43 → EH 20:28 → 4N 23:44
PROVIDERS: ADMIT Family Medicine; ATTEND Family Medicine
DX: K57.32 Diverticulitis of large intestine without perforation or abscess without bleeding (principal); Z68.42 Body mass index [BMI] 45.0-49.9, adult; F10.10 Alcohol abuse, uncomplicated; F17.210 Nicotine dependence, cigarettes, uncomplicated; E66.01 Morbid (severe) obesity due to excess calories; Y90.9 Presence of alcohol in blood, level not specified
CPT/HCPCS: 36415; 74177; 80048; 80053; 81001; 82962; 83690; 85025; 87040; 96361; 96365; 96367; 96375; 99285; J0295; J0744; J1815; J2270; J2405; J3411; J3475; J3480; J3490; J7030

== ENCOUNTER 2019-10-14 08:31 | Emergency (ER) | payer OTHER ==
[2019-10-14] MEDS ORDERED: LIDOCAINE 1% INJ-PF (10 MG/ML) 30 ML SDV INJ ONE (09:54)
[2019-10-14] MEDS ORDERED: LIDOCAINE 1.5%/EPINEPHRINE INJ-PF 30 ML SDV INJ ONE ×2 (10:00→10:01)
--- NOTE | 2019-10-14 10:04 | ER Document Report ---
ED General - General Chief Complaint: Skin Problem Stated Complaint: GROIN SWELLING Time Seen by Provider: 10/14/19 09:33 TRAVEL OUTSIDE OF THE [place] IN LAST 30 DAYS: No - HPI Notes: Chief complaint: Boil left groin area 39-year-old male in good general health taking no regular medications with no known allergies presents with complaint of a boil along the posterior aspect of the scrotum on the left side which has developed over the past 4 days. The area is increasingly painful and he has had a small amount of spontaneous drainage from this. He denies fever, chills, nausea or vomiting. He denies any known history of diabetes. - Related Data Allergies/Adverse Reactions: No Known Allergies Allergy (Verified 03/09/19 16:43) Past Medical History - General Information source: Patient, [facility] Records - Social History Smoking Status: Current Every Day Smoker Frequency of alcohol use: Occasional Drug Abuse: None Family History: CAD, DM, Hyperlipidemia, Hypertension, Malignancy - mom with colon cancer Patient has suicidal ideation: No Patient has homicidal ideation: No - Past Medical History Cardiac Medical History: Denies: Hx Coronary Artery Disease, Hx Heart Attack, Hx Hypertension Pulmonary Medical History: Denies: Hx Asthma, Hx Bronchitis, Hx COPD, Hx Pneumonia Neurological Medical History: Denies: Hx Cerebrovascular Accident, Hx Seizures Renal/ Medical History: Denies: Hx Peritoneal Dialysis GI Medical History: Reports: Hx Diverticulitis Musculoskeletal Medical History: Denies Hx Arthritis Past Surgical History: Reports: Hx Appendectomy - Immunizations Immunizations up to date: Yes Hx Diphtheria, Pertussis, Tetanus Vaccination: Yes Review of Systems - Review of Systems Notes: Constitutional: Negative for fever. HENT: Negative for sore throat. Eyes: Negative for visual changes. Cardiovascular: Negative for chest pain. Respiratory: Negative for shortness of breath. Gastrointestinal: Negative for abdominal pain, vomiting or diarrhea. Genitourinary: Negative for dysuria. Musculoskeletal: Negative for back pain. Skin: As per HPI. Neurological: Negative for headaches, weakness or numbness. 10 point ROS negative except as marked above and in HPI. Physical Exam - Vital signs Vitals: Temp Pulse Resp BP Pulse Ox 97.9 F 84 18 153/101 H 99 10/14/19 08:34 10/14/19 08:34 10/14/19 08:34 10/14/19 08:34 10/14/19 08:34 - Notes Notes: GENERAL: Well-developed well-nourished appearing uncomfortable. SKIN: Good turgor no rashes. HEAD: Normocephalic atraumatic. EYES: PERRLA. EOMI. Conjunctivae and sclerae clear. EARS: CANALS AND TMS CLEAR. NOSE: CLEAR. MOUTH: Moist mucosa. Good dentition. No stridor or edema. No drooling. NECK: Supple. No masses or thyromegaly. No adenopathy. Carotids 2+ without bruits. No JVD. BACK: Symmetrical without tenderness. CHEST: Respirations unlabored. Breath sounds clear and symmetrical. HEART: Regular rhythm. No murmur gallop or rub. ABDOMEN: Soft nontender without masses, organomegaly or rebound. Bowel sounds normally active. No bruits. GENITALIA: Patient has a 2.5 x 4.5 cm area of fluctuance and tenderness along the posterolateral aspect of the scrotum within the groin. Mild redness. There is some pitting of the skin in this area that suggests that he may have had some earlier spontaneous drainage. No active drainage at this time. EXTREMITIES: No edema. No calf tenderness. Cap refill less than 1.5 seconds. Dorsalis pedis and posterior tibial pulses 3+ and symmetrical. NEUROLOGICAL: GCS 15. Alert and oriented x3. Normal gait. Fluent speech. Cranial nerves II through XII intact. Sensorimotor and cerebellar normal. Normal tone. PSYCHIATRIC: Appropriate affect. Course - Re-evaluation Re-evalutation: 10/14/19 11:27 Informed consent was obtained and I&D procedure was performed. Random fi ngerstick glucose was 114. Patient appears stable for outpatient follow-up with PMD. - Vital Signs Vital signs: Temp Pulse Resp BP Pulse Ox 97.9 F 84 18 153/101 H 99 10/14/19 08:34 10/14/19 08:34 10/14/19 08:34 10/14/19 08:34 10/14/19 08:34 - Laboratory Laboratory results interpreted by me: 10/14/19 10:02 POC Glucose 114 H Procedures - Incision and Drainage Left Posterior Groin Type: Complex, Single Anesthetic type: 1% Lidocaine w/epi mL's of anesthetic: 15 Blade size: 11 I&D procedure: Betadine prep applied, Carmen applied, Iodoform packing placed, Sterile dressing applied Incision Method: Incision made with needle Amount/type of drainage: 20 Notes: 10/14/19 11:25 Area was initially decompressed with an 18-gauge needle followed by incision #11 blade. Loculations were cleared with a curved hemostat. Wound was irrigated and iodoform packing placed. Minimal bleeding. 10/14/19 11:26 Discharge - Discharge Clinical Impression: Left perineal abscess Condition: Stable Disposition: HOME, SELF-CARE Additional Instructions: Follow-up with your primary care provider within the next 48 hours. Take prescribed medication. Return here as needed for new or worsening symptoms: Pain that is worsening or unimproved Uncontrolled vomiting High fever or shaking chills Overall worsening Prescriptions: Tramadol HCl [Ultram 50 mg Tablet] 50 mg PO Q4HP PRN #12 tab PRN Reason: Sulfamethoxazole/Trimethoprim [Septra-Ds 800-160 mg Tablet] 2 tab PO BID 10 Days #40 tablet
[2019-10-14 11:41] VITALS: BP 156/92
== END 2019-10-14 11:39 | disposition home or self-care (01) ==
LOC: ER 08:31
PROC: 0H99XZZ Drainage of Perineum Skin, External Approach (ICD-10-PCS; principal; 2019-10-14)
DX: L02.214 Cutaneous abscess of groin (principal); F17.200 Nicotine dependence, unspecified, uncomplicated
CPT/HCPCS: 99283; 82962; 10060; J3490

== ENCOUNTER 2019-10-16 11:35 | Emergency (ER) | payer OTHER ==
[2019-10-16 11:40] VITALS: BP 151/98
--- NOTE | 2019-10-16 12:05 | ER Document Report ---
ED General - General Chief Complaint: Wound Recheck Stated Complaint: WOUND RECHECK Notes: Patient is a 39-year-old white male who was seen here 2 days ago for an abscess formation to the left perineal area who returns for wound check. He states the wound is doing well. He states he is unsure if the packing is still in place. Denies any complications or problems. States there has been minimal to no drainage remaining. States the area feels much better and is no longer painful. Has been taking the antibiotics as previously prescribed. Denies any worsening, complications, fever, nausea or vomiting or chills or night sweats. TRAVEL OUTSIDE OF THE [place] IN LAST 30 DAYS: No - Related Data Allergies/Adverse Reactions: No Known Allergies Allergy (Verified 03/09/19 16:43) Past Medical History - Social History Smoking Status: Current Every Day Smoker Family History: CAD, DM, Hyperlipidemia, Hypertension, Malignancy - mom with colon cancer Patient has suicidal ideation: No Patient has homicidal ideation: No - Past Medical History Cardiac Medical History: Denies: Hx Coronary Artery Disease, Hx Heart Attack, Hx Hypertension Pulmonary Medical History: Denies: Hx Asthma, Hx Bronchitis, Hx COPD, Hx Pneumonia Neurological Medical History: Denies: Hx Cerebrovascular Accident, Hx Seizures Renal/ Medical History: Denies: Hx Peritoneal Dialysis GI Medical History: Reports: Hx Diverticulitis Musculoskeletal Medical History: Denies Hx Arthritis Past Surgical History: Reports: Hx Appendectomy - Immunizations Immunizations up to date: Yes Hx Diphtheria, Pertussis, Tetanus Vaccination: Yes Review of Systems - Review of Systems Skin: Other - Wound -: Yes All other systems reviewed and negative Physical Exam - Vital signs Vitals: Temp Pulse Resp BP Pulse Ox 97.9 F 93 18 151/98 H 97 10/16/19 11:38 10/16/19 11:38 10/16/19 11:38 10/16/19 11:38 10/16/19 11:38 - General General appearance: Appears well, Alert - Respiratory Respiratory status: No respiratory distress Chest status: Nontender Breath sounds: Normal Chest palpation: Normal - Cardiovascular Rhythm: Regular Heart sounds: Normal auscultation - Neurological Neuro grossly intact: Yes Cognition: Normal Orientation: AAOx4 - Psychological Associated symptoms: Normal affect, Normal mood - Skin Skin Temperature: Warm Skin Moisture: Dry Skin Color: Other - Small area of induration approximately a centimeter in diameter to the left infra scrotal/perineal region. There is a small opening centrally. No drainage appreciated. Packing is not in place, previously came out. No significant erythema, expanding cellulitis or proximal streaking. Routine healing appreciated. Course - Re-evaluation Re-evalutation: 10/16/19 12:04 Patient with an improving wound. He will continue the antibiotics until completion as previously prescribed. Counseled him regarding ongoing wound care measures. And advised that he return here or any ER immediately with any new, persistent or worsening symptoms. He verbalized understood and agreed. - Vital Signs Vital signs: Temp Pulse Resp BP Pulse Ox 97.9 F 93 18 151/98 H 97 10/16/19 11:38 10/16/19 11:38 10/16/19 11:38 10/16/19 11:38 10/16/19 11:38 Discharge - Discharge Clinical Impression: Wound check, abscess Condition: Stable Disposition: HOME, SELF-CARE Instructions: Dressing Instructions for Open Wounds ([facility]) Additional Instructions: Follow-up with your regular doctor in 2 to 3 days for reevaluation. Return here or any ER immediately with any new, persistent or worsening symptoms.
== END 2019-10-16 12:23 | disposition home or self-care (01) ==
LOC: ER 11:35
DX: L02.215 Cutaneous abscess of perineum (principal); F17.200 Nicotine dependence, unspecified, uncomplicated
CPT/HCPCS: 99282